=== PATIENT | male | born 1940 | race Caucasian/White ===

== ENCOUNTER 2018-10-06 11:45 | Outpatient (RCR) | payer MEDICARE, SELFPAY ==
--- NOTE | 2018-07-26 16:21 | PT.OPPOC ---
Current Diagnoses Pain in unspecified hip (07/26/18) Difficulty in walking, not elsewhere classified (07/26/18) Weakness (07/26/18) Provider Visit Care Team Role Provider Type Other Providers Specialty: Address: Phone: Fax: Email: Syeda Durand MD Attending Provider Non-Staff Specialty: Internal Medicine Address: [address] [place] [address], [phone] Fax: Email: Plan Of Care PT-OP-T Assessment and Plan Start: 07/26/18 08:08 Freq: Status: Active Protocol: Document 07/26/18 15:21 [facility] (Rec: 07/26/18 16:05 [facility] [id number]) Physical Therapy Assessment Rehab Potential Rehabilitation Potential Good Evaluation Complexity Number of Personal Factors/Comorbidities 3 or More Number of Body Systems Impaired 3 Clinical Presentation at Evaluation Evolving Impairments Impairments Activity Tolerance Functional Activities Pain Strength Goals Four Impairment strength Churn Driller Helper Goal (LTG) Increase strength bilateral LE 's to at least 4+/5 throughout Three Impairment Functional activities Short Term Goal (STG) Patient will improve his ROM and strength sufficient to allow him to don and doff his shoes and socks with ease STG Duration 6 wks Usp Goal (LTG) Patient will be able to tolerate resumption of gardening activities including getting down to the ground and back up without difficulty . LTG Duration 3 months Two Impairment Activity tolerance Churn Driller Helper Goal (LTG) Patient will be able to resume prior activities including gardening and walking 15-20 min at a time without difficulty LTG Duration 3 months One Impairment pain Short Term Goal (STG) Decrease pain to no greater than 4/10 STG Duration 6 wks Usp Goal (LTG) Decrease pain to no greater than 2/10 LTG Duration 3 months Physical Therapy Plan Frequency and Duration Frequency of Treatment 2x/Week Duration of Treatment 3 months Plan of Care Start Date 07/26/18 Plan of Care End Date 10/24/18 Therapeutic Interventions Therapeutic Interventions Aquatic Therapy Home Exercise Program Patient/Caregiver Education Self-Care/Home Management Next Visit Focus/Plan Next Note Type Treatment Note Next Visit Plan Initiate aquatic therapy Plan of Care Dates Plan of Care Start Date 07/26/18 Plan of Care End Date 10/24/18 Please Sign and Return: I have reviewed this Plan of Care and certify that the skilled therapy services above are required to meet the patient?s needs. Physician Signature Date Printed Name and Credentials Clinical Instructor Signature Printed Name and Credentials
--- NOTE | 2018-07-26 16:22 | PT.OIE ---
Current Diagnoses Pain in unspecified hip (07/26/18) Difficulty in walking, not elsewhere classified (07/26/18) Weakness (07/26/18) Provider Visit Care Team Role Provider Type Other Providers Specialty: Address: Phone: Fax: Email: Syeda Durand MD Attending Provider Non-Staff Specialty: Internal Medicine Address: [address] [place] [address], [phone] Fax: Email: Physical Therapy Initial Evaluation PT-OP-A Visit Information Start: 07/26/18 08:08 Freq: Status: Active Protocol: Document 07/26/18 15:21 [facility] (Rec: 07/26/18 16:05 [facility] [id number]) Out-Patient Physical Therapy Visit Information Visit Information Visit Type Initial Evaluation Visit Start Time 13:00 Visit Stop Time 13:45 Total Visit Minutes 45 Visit Number 1 Number of SECOND FACING BASTER Visits 0 Evaluation Information Evaluation Date 07/26/18 Precautions Precautions cardiac HTN PT-OP-B Current Condition Start: 07/26/18 08:08 Freq: Status: Active Protocol: Document 07/26/18 15:21 [facility] (Rec: 07/26/18 16:05 [facility] [id number]) Current Condition History of Current Condition Onset Date 1 year Current Complaints pain bilateral hips, LBP, left buttock and thigh History of Current Condition Patient reports gradual increase in pain, gaining weight, decrease in activity tolerance. States it has been a difficult year with multiple deaths of friends and family members and he has found it hard to be motivated to put his health as a priority. Has history of bipolar disorder, states medications were not helpful. History of quadrupal bypass surgery. Treatment Goals Patient/Caregiver Goals Decrease his pain, improve his activity tolerance, return to more active lifestyle. Prior Functional Status Baseline Function- ADL's Independent Baseline Function- Mobility Independent Baseline Function- Gait Independent, no pain Baseline Function- Recreation/Hobbies gardening, walking without difficulty Current Functional Impairments (Reported) Functional Limitations- ADL's painful, difficulty donning/ doffing shoes and socks Functional Limitations- Mobility/Gait painful and limited to household and short community distance Functional Limitations- Recreation/ painful, difficult to get up Hobbies off ground for gardening Personal Factors Other Personal Factors That May Effect depression, hx bipolar Therapy/Recovery disortder PT-OP-C Subjective Start: 07/26/18 08:08 Freq: Status: Active Protocol: Document 07/26/18 15:21 [facility] (Rec: 07/26/18 16:05 [facility] [id number]) Patient Questionnaires Lower Extremity Functional Scale LEFS Score 50 LEFS Impairment 40 to 59% Impaired (Score 32- 47) OP-PT Pain Assessment Pain Assessment Grid Paper Pain Assessment Grid Completed Yes Location fiorella hips, LB, left buttock and posterior thigh Intensity 6 Scale Used Numeric (1 - 10) Description Aching Pressure Tightness Frequency Frequent Pain Aggravating Factors Activity Exercise Walking Pain Alleviating Factors None Pain Behaviors Pain Behaviors Facial Grimacing Wincing PT-OP-G Mobility & Gait Start: 07/26/18 08:08 Freq: Status: Active Protocol: Document 07/26/18 15:21 [facility] (Rec: 07/26/18 16:05 [facility] [id number]) OP Mobility Evaluation Bed Mobility Rolling indep Supine to and from Sit indep Transfers Sit to Stand indep Floor Transfers labored, requires use of UE's on chair or table OP Gait Assessment Gait Gait Assistance Required: Independent Assistive Devices Assistive Device None Gait Deviations General Gait Pattern Decreased Stride Length Decreased Feet Clearance Factors Limiting Gait Function Factors Limiting Gait Function Decreased Strength Limited Range of Motion Pain Stair Climbing Evaluation Evaluation Level of Assist On Stairs Independent Devices Stair Climbing Assistive Devices Left Railing Right Railing Technique/Endurance Stair Climbing Direction Ascend and Descend Stair Climbing Technique Step Over Step PT-OP-K Range of Motion Start: 07/26/18 08:08 Freq: Status: Active Protocol: Document 07/26/18 15:21 [facility] (Rec: 07/26/18 16:05 [facility] [id number]) Lumbar Spine Range of Motion Lumbar Spine Active ROM Limitations Soft Tissue Tightness Muscle Weakness Pain Comments moderately decreased all motions Shoulder Goniometric Range of Motion Shoulder Measured in Degrees fiorella Shoulder ROM WFL Yes Hip Goniometric Range of Motion Hip Measured in Degrees Right Testing Position Supine Flexion w/Knee Flexed 120 Straight Leg Raise 55 Extension 5 Internal Rotation 20 External Rotation 40 left Testing Position Supine Flexion w/Knee Flexed 115 Straight Leg Raise 45 Extension 5 Internal Rotation 10 External Rotation 35 Hip ROM Limitations Hip ROM Limitations Soft Tissue Tightness Muscle Weakness Pain Knee Goniometric Range of Motion Knee Measured in Degrees fiorella Knee ROM WFL Yes Patient Position Supine Ankle and Foot Goniometric Range of Motion Ankle and Foot Measured in Degrees fiorella Ankle/Foot ROM WFL No Dorsiflexion with Knee Flexed 5 Dorsiflexion with Knee Extended 0 Plantarflexion 50 Ankle and Foot ROM Limitations ROM Limitations Soft Tissue Tightness Muscle Weakness PT-OP-M Strength Start: 07/26/18 08:08 Freq: Status: Active Protocol: Document 07/26/18 15:21 [facility] (Rec: 07/26/18 16:05 [facility] [id number]) Trunk Strength Trunk Manual Muscle Testing Testing Position Supine Flexion 3- Fair- Extension 3- Fair- Core Stabilization poor ability to activate TrA and multifidi Hip Strength Hip Manual Muscle Testing fiorella Flexion (L2) 3+ Fair+ Extension (S1) 3+ Fair+ Abduction 4- Good- External Rotation 3+ Fair+ Internal Rotation 4- Good- Knee Strength Knee Manual Muscle Testing fiorella Flexion (S2) 4+ Good+ Extension (L3) 4+ Good+ Ankle/Foot Strength Ankle and Foot Manual Muscle Testing fiorella Dorsiflexion (L4) 4+ Good+ Plantarflexion (S1) 4+ Good+ PT-OP-Q Treatments Start: 07/26/18 08:08 Freq: Status: Active Protocol: Document 07/26/18 15:21 [facility] (Rec: 07/26/18 16:05 [facility] [id number]) Self-Care/Home Management Treatment Education Patient Education Pain Management Other Education Resume HEP as previously instructed by [facility] . Issued aquatic information sheet and discussed benefits. PT-OP-T Assessment and Plan Start: 07/26/18 08:08 Freq: Status: Active Protocol: Document 07/26/18 15:21 [facility] (Rec: 07/26/18 16:05 [facility] [id number]) Physical Therapy Assessment Rehab Potential Rehabilitation Potential Good Evaluation Complexity Number of Personal Factors/Comorbidities 3 or More Number of Body Systems Impaired 3 Clinical Presentation at Evaluation Evolving Impairments Impairments Activity Tolerance Functional Activities Pain Strength Goals Four Impairment strength Assisted Goal (LTG) Increase strength bilateral LE 's to at least 4+/5 throughout Three Impairment Functional activities Short Term Goal (STG) Patient will improve his ROM and strength sufficient to allow him to don and doff his shoes and socks with ease STG Duration 6 wks Security Incident Response Engineer Goal (LTG) Patient will be able to tolerate resumption of gardening activities including getting down to the ground and back up without difficulty . LTG Duration 3 months Two Impairment Activity tolerance Security Incident Response Engineer Goal (LTG) Patient will be able to resume prior activities including gardening and walking 15-20 min at a time without difficulty LTG Duration 3 months One Impairment pain Short Term Goal (STG) Decrease pain to no greater than 4/10 STG Duration 6 wks Assisted Goal (LTG) Decrease pain to no greater than 2/10 LTG Duration 3 months Physical Therapy Plan Frequency and Duration Frequency of Treatment 2x/Week Duration of Treatment 3 months Plan of Care Start Date 07/26/18 Plan of Care End Date 10/24/18 Therapeutic Interventions Therapeutic Interventions Aquatic Therapy Home Exercise Program Patient/Caregiver Education Self-Care/Home Management Next Visit Focus/Plan Next Note Type Treatment Note Next Visit Plan Initiate aquatic therapy
--- NOTE | 2018-08-05 09:56 | PT.OTN ---
Current Diagnoses Pain in unspecified hip (08/04/18) Physical Therapy Treatment Note PT-OP-A Visit Information Start: 07/26/18 08:08 Freq: Status: Active Protocol: Document 08/04/18 11:00 [facility] (Rec: 08/05/18 09:55 [facility] [id number]) Out-Patient Physical Therapy Visit Information Visit Information Visit Type Aquatic Treatment Note Visit Start Time 11:00 Visit Stop Time 11:45 Total Visit Minutes 45 Visit Number 2 Number of SPEAR FISHER Visits 0 Evaluation Information Evaluation Date 07/26/18 Precautions Precautions cardiac HTN PT-OP-B Current Condition Start: 07/26/18 08:08 Freq: Status: Active Protocol: Document 07/26/18 15:21 [facility] (Rec: 07/26/18 16:05 [facility] [id number]) Current Condition History of Current Condition Onset Date 1 year Current Complaints pain bilateral hips, LBP, left buttock and thigh History of Current Condition Patient reports gradual increase in pain, gaining weight, decrease in activity tolerance. States it has been a difficult year with multiple deaths of friends and family members and he has found it hard to be motivated to put his health as a priority. Has history of bipolar disorder, states medications were not helpful. History of quadrupal bypass surgery. Treatment Goals Patient/Caregiver Goals Decrease his pain, improve his activity tolerance, return to more active lifestyle. Prior Functional Status Baseline Function- ADL's Independent Baseline Function- Mobility Independent Baseline Function- Gait Independent, no pain Baseline Function- Recreation/Hobbies gardening, walking without difficulty Current Functional Impairments (Reported) Functional Limitations- ADL's painful, difficulty donning/ doffing shoes and socks Functional Limitations- Mobility/Gait painful and limited to household and short community distance Functional Limitations- Recreation/ painful, difficult to get up Hobbies off ground for gardening Personal Factors Other Personal Factors That May Effect depression, hx bipolar Therapy/Recovery disortder PT-OP-C Subjective Start: 07/26/18 08:08 Freq: Status: Active Protocol: Document 07/26/18 15:21 [facility] (Rec: 07/26/18 16:05 [facility] [id number]) Patient Questionnaires Lower Extremity Functional Scale LEFS Score 50 LEFS Impairment 40 to 59% Impaired (Score 32- 47) OP-PT Pain Assessment Pain Assessment Grid Paper Pain Assessment Grid Completed Yes Location fiorella hips, LB, left buttock and posterior thigh Intensity 6 Scale Used Numeric (1 - 10) Description Aching Pressure Tightness Frequency Frequent Pain Aggravating Factors Activity Exercise Walking Pain Alleviating Factors None Pain Behaviors Pain Behaviors Facial Grimacing Wincing PT-OP-G Mobility & Gait Start: 07/26/18 08:08 Freq: Status: Active Protocol: Document 07/26/18 15:21 [facility] (Rec: 07/26/18 16:05 [facility] [id number]) OP Mobility Evaluation Bed Mobility Rolling indep Supine to and from Sit indep Transfers Sit to Stand indep Floor Transfers labored, requires use of UE's on chair or table OP Gait Assessment Gait Gait Assistance Required: Independent Assistive Devices Assistive Device None Gait Deviations General Gait Pattern Decreased Stride Length Decreased Feet Clearance Factors Limiting Gait Function Factors Limiting Gait Function Decreased Strength Limited Range of Motion Pain Stair Climbing Evaluation Evaluation Level of Assist On Stairs Independent Devices Stair Climbing Assistive Devices Left Railing Right Railing Technique/Endurance Stair Climbing Direction Ascend and Descend Stair Climbing Technique Step Over Step PT-OP-K Range of Motion Start: 07/26/18 08:08 Freq: Status: Active Protocol: Document 07/26/18 15:21 [facility] (Rec: 07/26/18 16:05 [facility] [id number]) Lumbar Spine Range of Motion Lumbar Spine Active ROM Limitations Soft Tissue Tightness Muscle Weakness Pain Comments moderately decreased all motions Shoulder Goniometric Range of Motion Shoulder Measured in Degrees fiorella Shoulder ROM WFL Yes Hip Goniometric Range of Motion Hip Measured in Degrees Right Testing Position Supine Flexion w/Knee Flexed 120 Straight Leg Raise 55 Extension 5 Internal Rotation 20 External Rotation 40 left Testing Position Supine Flexion w/Knee Flexed 115 Straight Leg Raise 45 Extension 5 Internal Rotation 10 External Rotation 35 Hip ROM Limitations Hip ROM Limitations Soft Tissue Tightness Muscle Weakness Pain Knee Goniometric Range of Motion Knee Measured in Degrees fiorella Knee ROM WFL Yes Patient Position Supine Ankle and Foot Goniometric Range of Motion Ankle and Foot Measured in Degrees fiorella Ankle/Foot ROM WFL No Dorsiflexion with Knee Flexed 5 Dorsiflexion with Knee Extended 0 Plantarflexion 50 Ankle and Foot ROM Limitations ROM Limitations Soft Tissue Tightness Muscle Weakness PT-OP-M Strength Start: 07/26/18 08:08 Freq: Status: Active Protocol: Document 07/26/18 15:21 [facility] (Rec: 07/26/18 16:05 [facility] [id number]) Trunk Strength Trunk Manual Muscle Testing Testing Position Supine Flexion 3- Fair- Extension 3- Fair- Core Stabilization poor ability to activate TrA and multifidi Hip Strength Hip Manual Muscle Testing fiorella Flexion (L2) 3+ Fair+ Extension (S1) 3+ Fair+ Abduction 4- Good- External Rotation 3+ Fair+ Internal Rotation 4- Good- Knee Strength Knee Manual Muscle Testing fiorella Flexion (S2) 4+ Good+ Extension (L3) 4+ Good+ Ankle/Foot Strength Ankle and Foot Manual Muscle Testing fiorella Dorsiflexion (L4) 4+ Good+ Plantarflexion (S1) 4+ Good+ PT-OP-Q Treatments Start: 07/26/18 08:08 Freq: Status: Active Protocol: Document 07/26/18 15:21 [facility] (Rec: 07/26/18 16:05 [facility] [id number]) Self-Care/Home Management Treatment Education Patient Education Pain Management Other Education Resume HEP as previously instructed by [facility] . Issued aquatic information sheet and discussed benefits. PT-OP-S Aquatic Treatment Start: 07/26/18 08:08 Freq: Status: Active Protocol: Document 08/04/18 11:00 [facility] (Rec: 08/05/18 09:55 [facility] [id number]) Aquatics Treatment Pool Entry/Exit Pool Entry/Exit Method Stairs Assistance Standby Assistance Verbal Cues Water Walking fwd,bck, Water Level Chest Level Level of Assistance Standby Assistance Verbal Cues Comments emphasis on postural alignment and core stab Lower Extremity Exercises squats Body Position Standing Water Level Chest Level Reps/Duration 10x hip flex/ext, ab/ad, circles Body Position Standing Water Level Chest Level Reps/Duration 10x Lower Extremity Stretches HS, ITB Body Position Standing Water Level Chest Level Equipment Small Noodle Reps/Duration 2x ea Upper Extremity Exercises shoulder flex/ext Reps/Duration 10x Comments DLS emphasis hor ab/ad Reps/Duration 10x Comments DLS emphasis Spinal Exercises SKTC, DKTC Water Level [place] Reps/Duration 2x 30 Comments at wall deep water hang Reps/Duration 1 min x 2 Comments at wall [place] Activities [place] Activities Bicycle Cross Country Running Equipment XL belt Duration 15' Comments slow speed, emphasis on postural alignment and core stab PT-OP-T Assessment and Plan Start: 07/26/18 08:08 Freq: Status: Active Protocol: Document 08/04/18 11:00 [facility] (Rec: 08/05/18 09:55 [facility] [id number]) Physical Therapy Assessment Goals Four Impairment strength Fci Goal (LTG) Increase strength bilateral LE 's to at least 4+/5 throughout Three Impairment Functional activities Short Term Goal (STG) Patient will improve his ROM and strength sufficient to allow him to don and doff his shoes and socks with ease STG Duration 6 wks Fci Goal (LTG) Patient will be able to tolerate resumption of gardening activities including getting down to the ground and back up without difficulty . LTG Duration 3 months Two Impairment Activity tolerance Fci Goal (LTG) Patient will be able to resume prior activities including gardening and walking 15-20 min at a time without difficulty LTG Duration 3 months One Impairment pain Short Term Goal (STG) Decrease pain to no greater than 4/10 STG Duration 6 wks Special Deputy Sheriff Goal (LTG) Decrease pain to no greater than 2/10 LTG Duration 3 months Assessment Summary Assessment good tolerance for first aquatic therapy session, without c/o pain Physical Therapy Plan Therapeutic Interventions Therapeutic Interventions Aquatic Therapy Home Exercise Program Patient/Caregiver Education Self-Care/Home Management Next Visit Focus/Plan Next Note Type Treatment Note Next Visit Plan Progress aquatic therapy as tolerated. Add deep water DLS ex.
--- NOTE | 2018-08-06 14:47 | PT.OTN ---
Current Diagnoses Pain in unspecified hip (08/04/18) Physical Therapy Treatment Note PT-OP-A Visit Information Start: 07/26/18 08:08 Freq: Status: Active Protocol: Document 08/06/18 11:45 MEGHNA (Rec: 08/06/18 14:47 LJ [id number]) Out-Patient Physical Therapy Visit Information Visit Information Visit Type Aquatic Treatment Note Visit Start Time 11:45 Visit Stop Time 12:30 Total Visit Minutes 45 Visit Number 3 Number of WATER PUMP ASSEMBLER Visits 1 PT-OP-B Current Condition Start: 07/26/18 08:08 Freq: Status: Active Protocol: Document 07/26/18 15:21 SAK (Rec: 07/26/18 16:05 SAK [id number]) Current Condition History of Current Condition Onset Date 1 year Current Complaints pain bilateral hips, LBP, left buttock and thigh History of Current Condition Patient reports gradual increase in pain, gaining weight, decrease in activity tolerance. States it has been a difficult year with multiple deaths of friends and family members and he has found it hard to be motivated to put his health as a priority. Has history of bipolar disorder, states medications were not helpful. History of quadrupal bypass surgery. Treatment Goals Patient/Caregiver Goals Decrease his pain, improve his activity tolerance, return to more active lifestyle. Prior Functional Status Baseline Function- ADL's Independent Baseline Function- Mobility Independent Baseline Function- Gait Independent, no pain Baseline Function- Recreation/Hobbies gardening, walking without difficulty Current Functional Impairments (Reported) Functional Limitations- ADL's painful, difficulty donning/ doffing shoes and socks Functional Limitations- Mobility/Gait painful and limited to household and short community distance Functional Limitations- Recreation/ painful, difficult to get up Hobbies off ground for gardening Personal Factors Other Personal Factors That May Effect depression, hx bipolar Therapy/Recovery disortder PT-OP-C Subjective Start: 07/26/18 08:08 Freq: Status: Active Protocol: Document 08/06/18 11:45 MEGHNA (Rec: 08/06/18 14:47 LJ [id number]) OP-PT Subjective Patient Comments Patient Comments No c/o pain. Wanting to geta good workout in the water PT-OP-G Mobility & Gait Start: 07/26/18 08:08 Freq: Status: Active Protocol: Document 07/26/18 15:21 SAK (Rec: 07/26/18 16:05 [facility] [id number]) OP Mobility Evaluation Bed Mobility Rolling indep Supine to and from Sit indep Transfers Sit to Stand indep Floor Transfers labored, requires use of UE's on chair or table OP Gait Assessment Gait Gait Assistance Required: Independent Assistive Devices Assistive Device None Gait Deviations General Gait Pattern Decreased Stride Length Decreased Feet Clearance Factors Limiting Gait Function Factors Limiting Gait Function Decreased Strength Limited Range of Motion Pain Stair Climbing Evaluation Evaluation Level of Assist On Stairs Independent Devices Stair Climbing Assistive Devices Left Railing Right Railing Technique/Endurance Stair Climbing Direction Ascend and Descend Stair Climbing Technique Step Over Step PT-OP-K Range of Motion Start: 07/26/18 08:08 Freq: Status: Active Protocol: Document 07/26/18 15:21 [facility] (Rec: 07/26/18 16:05 [facility] [id number]) Lumbar Spine Range of Motion Lumbar Spine Active ROM Limitations Soft Tissue Tightness Muscle Weakness Pain Comments moderately decreased all motions Shoulder Goniometric Range of Motion Shoulder Measured in Degrees fiorella Shoulder ROM WFL Yes Hip Goniometric Range of Motion Hip Measured in Degrees Right Testing Position Supine Flexion w/Knee Flexed 120 Straight Leg Raise 55 Extension 5 Internal Rotation 20 External Rotation 40 left Testing Position Supine Flexion w/Knee Flexed 115 Straight Leg Raise 45 Extension 5 Internal Rotation 10 External Rotation 35 Hip ROM Limitations Hip ROM Limitations Soft Tissue Tightness Muscle Weakness Pain Knee Goniometric Range of Motion Knee Measured in Degrees fiorella Knee ROM WFL Yes Patient Position Supine Ankle and Foot Goniometric Range of Motion Ankle and Foot Measured in Degrees fiorella Ankle/Foot ROM WFL No Dorsiflexion with Knee Flexed 5 Dorsiflexion with Knee Extended 0 Plantarflexion 50 Ankle and Foot ROM Limitations ROM Limitations Soft Tissue Tightness Muscle Weakness PT-OP-M Strength Start: 07/26/18 08:08 Freq: Status: Active Protocol: Document 07/26/18 15:21 [facility] (Rec: 07/26/18 16:05 [facility] [id number]) Trunk Strength Trunk Manual Muscle Testing Testing Position Supine Flexion 3- Fair- Extension 3- Fair- Core Stabilization poor ability to activate TrA and multifidi Hip Strength Hip Manual Muscle Testing fiorella Flexion (L2) 3+ Fair+ Extension (S1) 3+ Fair+ Abduction 4- Good- External Rotation 3+ Fair+ Internal Rotation 4- Good- Knee Strength Knee Manual Muscle Testing fiorella Flexion (S2) 4+ Good+ Extension (L3) 4+ Good+ Ankle/Foot Strength Ankle and Foot Manual Muscle Testing fiorella Dorsiflexion (L4) 4+ Good+ Plantarflexion (S1) 4+ Good+ PT-OP-Q Treatments Start: 07/26/18 08:08 Freq: Status: Active Protocol: Document 07/26/18 15:21 SAK (Rec: 07/26/18 16:05 SAK [id number]) Self-Care/Home Management Treatment Education Patient Education Pain Management Other Education Resume HEP as previously instructed by [facility] . Issued aquatic information sheet and discussed benefits. PT-OP-S Aquatic Treatment Start: 07/26/18 08:08 Freq: Status: Active Protocol: Document 08/06/18 11:45 MEGHNA (Rec: 08/06/18 14:47 LJ [id number]) Aquatics Treatment Pool Entry/Exit Pool Entry/Exit Method Stairs Assistance Standby Assistance Water Walking [place] September Water Level Chest Level Level of Assistance Verbal Cues Comments VCs for strong LE extension and glute activation fwd,bck,side,march Water Level Chest Level Level of Assistance Standby Assistance Verbal Cues Comments emphasis on postural alignment and core stab Lower Extremity Exercises HS curls and kick backs Body Position Standing Water Level Chest Level Reps/Duration 10 bilat Comments manual cues for activating gluteal muscles squats Body Position Standing Water Level Chest Level Reps/Duration 15x Comments arm movement to challenge core control hip flex/ext, ab/ad, circles Body Position Standing Water Level Chest Level Reps/Duration 10x Comments cues for increased power and core control Lower Extremity Stretches HS, ITB Body Position Standing Water Level Chest Level Equipment Small Noodle Reps/Duration 2x ea Upper Extremity Exercises shoulder flex/ext Reps/Duration 10x Comments DLS emphasis hor ab/ad Reps/Duration 10x Comments DLS emphasis Spinal Exercises SKTC, DKTC Water Level [place] Reps/Duration 2x 30 Comments at wall Balance tandem walking Body Position Standing Water Level Chest Level Reps/Duration 3 min Comments vc for positioning [place] Activities [place] Activities Bicycle Cross Country Running Equipment XL belt Duration 10' Comments emphasis on postural alignment and core stab PT-OP-T Assessment and Plan Start: 07/26/18 08:08 Freq: Status: Active Protocol: Document 08/06/18 11:45 MEGHNA (Rec: 08/06/18 14:47 MEGHNA [id number]) Physical Therapy Assessment Goals Four Impairment strength Correction Goal (LTG) Increase strength bilateral LE 's to at least 4+/5 throughout Three Impairment Functional activities Short Term Goal (STG) Patient will improve his ROM and strength sufficient to allow him to don and doff his shoes and socks with ease STG Duration 6 wks Coating Line Worker Goal (LTG) Patient will be able to tolerate resumption of gardening activities including getting down to the ground and back up without difficulty . LTG Duration 3 months Two Impairment Activity tolerance Correction Goal (LTG) Patient will be able to resume prior activities including gardening and walking 15-20 min at a time without difficulty LTG Duration 3 months One Impairment pain Short Term Goal (STG) Decrease pain to no greater than 4/10 STG Duration 6 wks Coating Line Worker Goal (LTG) Decrease pain to no greater than 2/10 LTG Duration 3 months Assessment Summary Assessment Pt tolerated session well. Physical Therapy Plan Frequency and Duration Frequency of Treatment 2x/Week Duration of Treatment 3 months Plan of Care Start Date 07/26/18 Plan of Care End Date 10/24/18 Therapeutic Interventions Therapeutic Interventions Aquatic Therapy Home Exercise Program Patient/Caregiver Education Self-Care/Home Management Next Visit Focus/Plan Next Note Type Treatment Note Next Visit Plan Progress aquatic therapy as tolerated. Add deep water DLS ex.
--- NOTE | 2018-08-11 16:38 | PT.OTN ---
Current Diagnoses Pain in unspecified hip (08/11/18) Physical Therapy Treatment Note PT-OP-A Visit Information Start: 07/26/18 08:08 Freq: Status: Active Protocol: Document 08/11/18 14:30 [facility] (Rec: 08/11/18 14:40 [facility] [id number]) Out-Patient Physical Therapy Visit Information Visit Information Visit Type Treatment Note Visit Start Time 14:30 Visit Stop Time 15:15 Total Visit Minutes 45 Visit Number 4 Number of LINER ROLL CHANGER Visits 0 Evaluation Information Evaluation Date 07/26/18 Precautions Precautions cardiac HTN PT-OP-B Current Condition Start: 07/26/18 08:08 Freq: Status: Active Protocol: Document 07/26/18 15:21 SAK (Rec: 07/26/18 16:05 [facility] [id number]) Current Condition History of Current Condition Onset Date 1 year Current Complaints pain bilateral hips, LBP, left buttock and thigh History of Current Condition Patient reports gradual increase in pain, gaining weight, decrease in activity tolerance. States it has been a difficult year with multiple deaths of friends and family members and he has found it hard to be motivated to put his health as a priority. Has history of bipolar disorder, states medications were not helpful. History of quadrupal bypass surgery. Treatment Goals Patient/Caregiver Goals Decrease his pain, improve his activity tolerance, return to more active lifestyle. Prior Functional Status Baseline Function- ADL's Independent Baseline Function- Mobility Independent Baseline Function- Gait Independent, no pain Baseline Function- Recreation/Hobbies gardening, walking without difficulty Current Functional Impairments (Reported) Functional Limitations- ADL's painful, difficulty donning/ doffing shoes and socks Functional Limitations- Mobility/Gait painful and limited to household and short community distance Functional Limitations- Recreation/ painful, difficult to get up Hobbies off ground for gardening Personal Factors Other Personal Factors That May Effect depression, hx bipolar Therapy/Recovery disortder PT-OP-C Subjective Start: 07/26/18 08:08 Freq: Status: Active Protocol: Document 08/11/18 14:30 [facility] (Rec: 08/11/18 14:40 [facility] [id number]) OP-PT Subjective Patient Comments Patient Comments No new c/o PT-OP-G Mobility & Gait Start: 07/26/18 08:08 Freq: Status: Active Protocol: Document 07/26/18 15:21 [facility] (Rec: 07/26/18 16:05 [facility] [id number]) OP Mobility Evaluation Bed Mobility Rolling indep Supine to and from Sit indep Transfers Sit to Stand indep Floor Transfers labored, requires use of UE's on chair or table OP Gait Assessment Gait Gait Assistance Required: Independent Assistive Devices Assistive Device None Gait Deviations General Gait Pattern Decreased Stride Length Decreased Feet Clearance Factors Limiting Gait Function Factors Limiting Gait Function Decreased Strength Limited Range of Motion Pain Stair Climbing Evaluation Evaluation Level of Assist On Stairs Independent Devices Stair Climbing Assistive Devices Left Railing Right Railing Technique/Endurance Stair Climbing Direction Ascend and Descend Stair Climbing Technique Step Over Step PT-OP-K Range of Motion Start: 07/26/18 08:08 Freq: Status: Active Protocol: Document 07/26/18 15:21 [facility] (Rec: 07/26/18 16:05 [facility] [id number]) Lumbar Spine Range of Motion Lumbar Spine Active ROM Limitations Soft Tissue Tightness Muscle Weakness Pain Comments moderately decreased all motions Shoulder Goniometric Range of Motion Shoulder Measured in Degrees fiorella Shoulder ROM WFL Yes Hip Goniometric Range of Motion Hip Measured in Degrees Right Testing Position Supine Flexion w/Knee Flexed 120 Straight Leg Raise 55 Extension 5 Internal Rotation 20 External Rotation 40 left Testing Position Supine Flexion w/Knee Flexed 115 Straight Leg Raise 45 Extension 5 Internal Rotation 10 External Rotation 35 Hip ROM Limitations Hip ROM Limitations Soft Tissue Tightness Muscle Weakness Pain Knee Goniometric Range of Motion Knee Measured in Degrees fiorella Knee ROM WFL Yes Patient Position Supine Ankle and Foot Goniometric Range of Motion Ankle and Foot Measured in Degrees fiorella Ankle/Foot ROM WFL No Dorsiflexion with Knee Flexed 5 Dorsiflexion with Knee Extended 0 Plantarflexion 50 Ankle and Foot ROM Limitations ROM Limitations Soft Tissue Tightness Muscle Weakness PT-OP-M Strength Start: 07/26/18 08:08 Freq: Status: Active Protocol: Document 07/26/18 15:21 [facility] (Rec: 07/26/18 16:05 [facility] [id number]) Trunk Strength Trunk Manual Muscle Testing Testing Position Supine Flexion 3- Fair- Extension 3- Fair- Core Stabilization poor ability to activate TrA and multifidi Hip Strength Hip Manual Muscle Testing fiorella Flexion (L2) 3+ Fair+ Extension (S1) 3+ Fair+ Abduction 4- Good- External Rotation 3+ Fair+ Internal Rotation 4- Good- Knee Strength Knee Manual Muscle Testing fiorella Flexion (S2) 4+ Good+ Extension (L3) 4+ Good+ Ankle/Foot Strength Ankle and Foot Manual Muscle Testing fiorella Dorsiflexion (L4) 4+ Good+ Plantarflexion (S1) 4+ Good+ PT-OP-Q Treatments Start: 07/26/18 08:08 Freq: Status: Active Protocol: Document 08/11/18 14:30 SAK (Rec: 08/11/18 15:16 SAK [id number]) Cardio Equipment Recumbent Stepper (Sci-Fit) Duration (Minutes) 10 Resistance 1 Seat Position 12 Gym Equipment Shuttle Recovery Bilateral Squats Resistance 87, 100 Shuttle Recovery Platform Stable Therapeutic Exercises Sitting Exercises hip ab, ad Resistance 60 Reps/Minutes 10x2 hamstring curl Resistance 80, 70 Reps/Minutes 10x2 Standing Exercises tricep press Resistance 30 Reps/Minutes 10x2 row, shld ext Resistance L2 TB Reps/Minutes 10x ea resisted walk Standing Exercise Name side, fwd/bck Equipment Used yellow band PT-OP-S Aquatic Treatment Start: 07/26/18 08:08 Freq: Status: Active Protocol: Document 08/06/18 11:45 LJ (Rec: 08/06/18 14:47 LJ [email or web address]) Aquatics Treatment Pool Entry/Exit Pool Entry/Exit Method Stairs Assistance Standby Assistance Water Walking [place] September Water Level Chest Level Level of Assistance Verbal Cues Comments VCs for strong LE extension and glute activation fwd,bck,side,march Water Level Chest Level Level of Assistance Standby Assistance Verbal Cues Comments emphasis on postural alignment and core stab Lower Extremity Exercises HS curls and kick backs Body Position Standing Water Level Chest Level Reps/Duration 10 bilat Comments manual cues for activating gluteal muscles squats Body Position Standing Water Level Chest Level Reps/Duration 15x Comments arm movement to challenge core control hip flex/ext, ab/ad, circles Body Position Standing Water Level Chest Level Reps/Duration 10x Comments cues for increased power and core control Lower Extremity Stretches HS, ITB Body Position Standing Water Level Chest Level Equipment Small Noodle Reps/Duration 2x ea Upper Extremity Exercises shoulder flex/ext Reps/Duration 10x Comments DLS emphasis hor ab/ad Reps/Duration 10x Comments DLS emphasis Spinal Exercises SKTC, DKTC Water Level [place] Reps/Duration 2x 30 Comments at wall Balance tandem walking Body Position Standing Water Level Chest Level Reps/Duration 3 min Comments vc for positioning [place] Activities [place] Activities Bicycle Cross [place] Running Equipment XL belt Duration 10' Comments emphasis on postural alignment and core stab PT-OP-T Assessment and Plan Start: 07/26/18 08:08 Freq: Status: Active Protocol: Document 08/11/18 14:30 [facility] (Rec: 08/11/18 14:40 SAK [id number]) Physical Therapy Assessment Goals Four Impairment strength Fdc Goal (LTG) Increase strength bilateral LE 's to at least 4+/5 throughout Three Impairment Functional activities Short Term Goal (STG) Patient will improve his ROM and strength sufficient to allow him to don and doff his shoes and socks with ease STG Duration 6 wks Fdc Goal (LTG) Patient will be able to tolerate resumption of gardening activities including getting down to the ground and back up without difficulty . LTG Duration 3 months Two Impairment Activity tolerance Printed Circuit Designer Goal (LTG) Patient will be able to resume prior activities including gardening and walking 15-20 min at a time without difficulty LTG Duration 3 months One Impairment pain Short Term Goal (STG) Decrease pain to no greater than 4/10 STG Duration 6 wks Printed Circuit Designer Goal (LTG) Decrease pain to no greater than 2/10 LTG Duration 3 months Assessment Summary Assessment Good tolerance for today's session, patient exhibits good motivation. Physical Therapy Plan Frequency and Duration Frequency of Treatment 2x/Week Duration of Treatment 3 months Plan of Care Start Date 07/26/18 Plan of Care End Date 10/24/18 Therapeutic Interventions Therapeutic Interventions Aquatic Therapy Home Exercise Program Patient/Caregiver Education Self-Care/Home Management Next Visit Focus/Plan Next Note Type Treatment Note Next Visit Plan Continue progression of aquatic and land-based PT
--- NOTE | 2018-08-18 16:12 | PT.OTN ---
Current Diagnoses Pain in unspecified hip (08/18/18) Physical Therapy Treatment Note PT-OP-A Visit Information Start: 07/26/18 08:08 Freq: Status: Active Protocol: Document 08/18/18 15:23 [facility] (Rec: 08/18/18 16:04 [facility] [id number]) Out-Patient Physical Therapy Visit Information Visit Information Visit Type Treatment Note Visit Start Time 15:20 Visit Stop Time 16:05 Total Visit Minutes 45 Visit Number 5 Number of FILLER SHREDDER MACHINE Visits 0 Evaluation Information Evaluation Date 07/26/18 Precautions Precautions cardiac HTN PT-OP-B Current Condition Start: 07/26/18 08:08 Freq: Status: Active Protocol: Document 07/26/18 15:21 [facility] (Rec: 07/26/18 16:05 [facility] [id number]) Current Condition History of Current Condition Onset Date 1 year Current Complaints pain bilateral hips, LBP, left buttock and thigh History of Current Condition Patient reports gradual increase in pain, gaining weight, decrease in activity tolerance. States it has been a difficult year with multiple deaths of friends and family members and he has found it hard to be motivated to put his health as a priority. Has history of bipolar disorder, states medications were not helpful. History of quadrupal bypass surgery. Treatment Goals Patient/Caregiver Goals Decrease his pain, improve his activity tolerance, return to more active lifestyle. Prior Functional Status Baseline Function- ADL's Independent Baseline Function- Mobility Independent Baseline Function- Gait Independent, no pain Baseline Function- Recreation/Hobbies gardening, walking without difficulty Current Functional Impairments (Reported) Functional Limitations- ADL's painful, difficulty donning/ doffing shoes and socks Functional Limitations- Mobility/Gait painful and limited to household and short community distance Functional Limitations- Recreation/ painful, difficult to get up Hobbies off ground for gardening Personal Factors Other Personal Factors That May Effect depression, hx bipolar Therapy/Recovery disortder PT-OP-C Subjective Start: 07/26/18 08:08 Freq: Status: Active Protocol: Document 08/18/18 15:23 [facility] (Rec: 08/18/18 16:04 [facility] [id number]) OP-PT Subjective Patient Comments Patient Comments prefers aquatic therapy. PT-OP-G Mobility & Gait Start: 07/26/18 08:08 Freq: Status: Active Protocol: Document 07/26/18 15:21 [facility] (Rec: 07/26/18 16:05 [facility] [id number]) OP Mobility Evaluation Bed Mobility Rolling indep Supine to and from Sit indep Transfers Sit to Stand indep Floor Transfers labored, requires use of UE's on chair or table OP Gait Assessment Gait Gait Assistance Required: Independent Assistive Devices Assistive Device None Gait Deviations General Gait Pattern Decreased Stride Length Decreased Feet Clearance Factors Limiting Gait Function Factors Limiting Gait Function Decreased Strength Limited Range of Motion Pain Stair Climbing Evaluation Evaluation Level of Assist On Stairs Independent Devices Stair Climbing Assistive Devices Left Railing Right Railing Technique/Endurance Stair Climbing Direction Ascend and Descend Stair Climbing Technique Step Over Step PT-OP-K Range of Motion Start: 07/26/18 08:08 Freq: Status: Active Protocol: Document 07/26/18 15:21 [facility] (Rec: 07/26/18 16:05 [facility] [id number]) Lumbar Spine Range of Motion Lumbar Spine Active ROM Limitations Soft Tissue Tightness Muscle Weakness Pain Comments moderately decreased all motions Shoulder Goniometric Range of Motion Shoulder Measured in Degrees fiorella Shoulder ROM WFL Yes Hip Goniometric Range of Motion Hip Measured in Degrees Right Testing Position Supine Flexion w/Knee Flexed 120 Straight Leg Raise 55 Extension 5 Internal Rotation 20 External Rotation 40 left Testing Position Supine Flexion w/Knee Flexed 115 Straight Leg Raise 45 Extension 5 Internal Rotation 10 External Rotation 35 Hip ROM Limitations Hip ROM Limitations Soft Tissue Tightness Muscle Weakness Pain Knee Goniometric Range of Motion Knee Measured in Degrees fiorella Knee ROM WFL Yes Patient Position Supine Ankle and Foot Goniometric Range of Motion Ankle and Foot Measured in Degrees fiorella Ankle/Foot ROM WFL No Dorsiflexion with Knee Flexed 5 Dorsiflexion with Knee Extended 0 Plantarflexion 50 Ankle and Foot ROM Limitations ROM Limitations Soft Tissue Tightness Muscle Weakness PT-OP-M Strength Start: 07/26/18 08:08 Freq: Status: Active Protocol: Document 07/26/18 15:21 [facility] (Rec: 07/26/18 16:05 [facility] [id number]) Trunk Strength Trunk Manual Muscle Testing Testing Position Supine Flexion 3- Fair- Extension 3- Fair- Core Stabilization poor ability to activate TrA and multifidi Hip Strength Hip Manual Muscle Testing fiorella Flexion (L2) 3+ Fair+ Extension (S1) 3+ Fair+ Abduction 4- Good- External Rotation 3+ Fair+ Internal Rotation 4- Good- Knee Strength Knee Manual Muscle Testing fiorella Flexion (S2) 4+ Good+ Extension (L3) 4+ Good+ Ankle/Foot Strength Ankle and Foot Manual Muscle Testing fiorella Dorsiflexion (L4) 4+ Good+ Plantarflexion (S1) 4+ Good+ PT-OP-Q Treatments Start: 07/26/18 08:08 Freq: Status: Active Protocol: Document 08/18/18 15:23 [facility] (Rec: 08/18/18 16:04 [facility] [id number]) Cardio Equipment Recumbent Stepper (Sci-Fit) Duration (Minutes) 10 Resistance 2 Seat Position 12 Gym Equipment Shuttle Recovery Bilateral Squats Resistance 125 Reps/Time 10x1, 20x1 Shuttle Balance chains red Details balance wide and narrow front/ back, side to side bal Reps/Duration 5 min chains yellow Details wide LUIS, narrow LUIS, EO, EC Reps/Duration 5 min Comments balance Therapeutic Exercises Supine Exercises HS stretch Reps/Minutes 2x Standing Exercises 4-way hip Equipment Used L1 TB Reps/Minutes 10x resisted walk Standing Exercise Name side, fwd/bck Equipment Used green band PT-OP-S Aquatic Treatment Start: 07/26/18 08:08 Freq: Status: Active Protocol: Document 08/06/18 11:45 LJ (Rec: 08/06/18 14:47 LJ [id number]) Aquatics Treatment Pool Entry/Exit Pool Entry/Exit Method Stairs Assistance Standby Assistance Water Walking [place] September Water Level Chest Level Level of Assistance Verbal Cues Comments VCs for strong LE extension and glute activation fwd,bck,side,september Water Level Chest Level Level of Assistance Standby Assistance Verbal Cues Comments emphasis on postural alignment and core stab Lower Extremity Exercises HS curls and kick backs Body Position Standing Water Level Chest Level Reps/Duration 10 bilat Comments manual cues for activating gluteal muscles squats Body Position Standing Water Level Chest Level Reps/Duration 15x Comments arm movement to challenge core control hip flex/ext, ab/ad, circles Body Position Standing Water Level Chest Level Reps/Duration 10x Comments cues for increased power and core control Lower Extremity Stretches HS, ITB Body Position Standing Water Level Chest Level Equipment Small Noodle Reps/Duration 2x ea Upper Extremity Exercises shoulder flex/ext Reps/Duration 10x Comments DLS emphasis hor ab/ad Reps/Duration 10x Comments DLS emphasis Spinal Exercises SKTC, DKTC Water Level [place] Reps/Duration 2x 30 Comments at wall Balance tandem walking Body Position Standing Water Level Chest Level Reps/Duration 3 min Comments vc for positioning [place] Activities [place] Activities Bicycle Cross Country Running Equipment XL belt Duration 10' Comments emphasis on postural alignment and core stab PT-OP-T Assessment and Plan Start: 07/26/18 08:08 Freq: Status: Active Protocol: Document 08/18/18 15:23 [facility] (Rec: 08/18/18 16:04 [facility] [id number]) Physical Therapy Assessment Goals Four Impairment strength Senior Living Goal (LTG) Increase strength bilateral LE 's to at least 4+/5 throughout Three Impairment Functional activities Short Term Goal (STG) Patient will improve his ROM and strength sufficient to allow him to don and doff his shoes and socks with ease STG Duration 6 wks Drilling Manager Goal (LTG) Patient will be able to tolerate resumption of gardening activities including getting down to the ground and back up without difficulty . LTG Duration 3 months Two Impairment Activity tolerance Drilling Manager Goal (LTG) Patient will be able to resume prior activities including gardening and walking 15-20 min at a time without difficulty LTG Duration 3 months One Impairment pain Short Term Goal (STG) Decrease pain to no greater than 4/10 STG Duration 6 wks Drilling Manager Goal (LTG) Decrease pain to no greater than 2/10 LTG Duration 3 months Assessment Summary Assessment Increased exercise tolerance, mod cues for postural alignment and core stab Physical Therapy Plan Frequency and Duration Frequency of Treatment 2x/Week Duration of Treatment 3 months Plan of Care Start Date 07/26/18 Plan of Care End Date 10/24/18 Therapeutic Interventions Therapeutic Interventions Aquatic Therapy Home Exercise Program Patient/Caregiver Education Self-Care/Home Management Next Visit Focus/Plan Next Note Type Treatment Note Next Visit Plan aquatic PT next session
--- NOTE | 2018-08-23 13:45 | PT.OTN ---
Current Diagnoses Pain in unspecified hip (08/20/18) Physical Therapy Treatment Note PT-OP-A Visit Information Start: 07/26/18 08:08 Freq: Status: Active Protocol: Document 08/20/18 12:30 [facility] (Rec: 08/23/18 13:31 [facility] [id number]) Out-Patient Physical Therapy Visit Information Visit Information Visit Type Treatment Note Visit Start Time 15:20 Visit Stop Time 16:05 Total Visit Minutes 45 Visit Number 5 Number of OUTBOARD MOTORBOAT OPERATOR Visits 0 Evaluation Information Evaluation Date 07/26/18 Precautions Precautions cardiac HTN PT-OP-B Current Condition Start: 07/26/18 08:08 Freq: Status: Active Protocol: Document 07/26/18 15:21 [facility] (Rec: 07/26/18 16:05 [facility] [id number]) Current Condition History of Current Condition Onset Date 1 year Current Complaints pain bilateral hips, LBP, left buttock and thigh History of Current Condition Patient reports gradual increase in pain, gaining weight, decrease in activity tolerance. States it has been a difficult year with multiple deaths of friends and family members and he has found it hard to be motivated to put his health as a priority. Has history of bipolar disorder, states medications were not helpful. History of quadrupal bypass surgery. Treatment Goals Patient/Caregiver Goals Decrease his pain, improve his activity tolerance, return to more active lifestyle. Prior Functional Status Baseline Function- ADL's Independent Baseline Function- Mobility Independent Baseline Function- Gait Independent, no pain Baseline Function- Recreation/Hobbies gardening, walking without difficulty Current Functional Impairments (Reported) Functional Limitations- ADL's painful, difficulty donning/ doffing shoes and socks Functional Limitations- Mobility/Gait painful and limited to household and short community distance Functional Limitations- Recreation/ painful, difficult to get up Hobbies off ground for gardening Personal Factors Other Personal Factors That May Effect depression, hx bipolar Therapy/Recovery disortder PT-OP-C Subjective Start: 07/26/18 08:08 Freq: Status: Active Protocol: Document 08/20/18 12:30 [facility] (Rec: 08/23/18 13:31 [facility] [id number]) OP-PT Subjective Patient Comments Patient Comments No new c/o, states he feels less pain with aquatic therapy , feels more energetic after. PT-OP-G Mobility & Gait Start: 07/26/18 08:08 Freq: Status: Active Protocol: Document 07/26/18 15:21 [facility] (Rec: 07/26/18 16:05 [facility] [id number]) OP Mobility Evaluation Bed Mobility Rolling indep Supine to and from Sit indep Transfers Sit to Stand indep Floor Transfers labored, requires use of UE's on chair or table OP Gait Assessment Gait Gait Assistance Required: Independent Assistive Devices Assistive Device None Gait Deviations General Gait Pattern Decreased Stride Length Decreased Feet Clearance Factors Limiting Gait Function Factors Limiting Gait Function Decreased Strength Limited Range of Motion Pain Stair Climbing Evaluation Evaluation Level of Assist On Stairs Independent Devices Stair Climbing Assistive Devices Left Railing Right Railing Technique/Endurance Stair Climbing Direction Ascend and Descend Stair Climbing Technique Step Over Step PT-OP-K Range of Motion Start: 07/26/18 08:08 Freq: Status: Active Protocol: Document 07/26/18 15:21 [facility] (Rec: 07/26/18 16:05 [facility] [id number]) Lumbar Spine Range of Motion Lumbar Spine Active ROM Limitations Soft Tissue Tightness Muscle Weakness Pain Comments moderately decreased all motions Shoulder Goniometric Range of Motion Shoulder Measured in Degrees fiorella Shoulder ROM WFL Yes Hip Goniometric Range of Motion Hip Measured in Degrees Right Testing Position Supine Flexion w/Knee Flexed 120 Straight Leg Raise 55 Extension 5 Internal Rotation 20 External Rotation 40 left Testing Position Supine Flexion w/Knee Flexed 115 Straight Leg Raise 45 Extension 5 Internal Rotation 10 External Rotation 35 Hip ROM Limitations Hip ROM Limitations Soft Tissue Tightness Muscle Weakness Pain Knee Goniometric Range of Motion Knee Measured in Degrees fiorella Knee ROM WFL Yes Patient Position Supine Ankle and Foot Goniometric Range of Motion Ankle and Foot Measured in Degrees fiorella Ankle/Foot ROM WFL No Dorsiflexion with Knee Flexed 5 Dorsiflexion with Knee Extended 0 Plantarflexion 50 Ankle and Foot ROM Limitations ROM Limitations Soft Tissue Tightness Muscle Weakness PT-OP-M Strength Start: 07/26/18 08:08 Freq: Status: Active Protocol: Document 07/26/18 15:21 [facility] (Rec: 07/26/18 16:05 [facility] [id number]) Trunk Strength Trunk Manual Muscle Testing Testing Position Supine Flexion 3- Fair- Extension 3- Fair- Core Stabilization poor ability to activate TrA and multifidi Hip Strength Hip Manual Muscle Testing fiorella Flexion (L2) 3+ Fair+ Extension (S1) 3+ Fair+ Abduction 4- Good- External Rotation 3+ Fair+ Internal Rotation 4- Good- Knee Strength Knee Manual Muscle Testing fiorella Flexion (S2) 4+ Good+ Extension (L3) 4+ Good+ Ankle/Foot Strength Ankle and Foot Manual Muscle Testing fiorella Dorsiflexion (L4) 4+ Good+ Plantarflexion (S1) 4+ Good+ PT-OP-Q Treatments Start: 07/26/18 08:08 Freq: Status: Active Protocol: Document 08/18/18 15:23 [facility] (Rec: 08/18/18 16:04 [facility] [id number]) Cardio Equipment Recumbent Stepper (Sci-Fit) Duration (Minutes) 10 Resistance 2 Seat Position 12 Gym Equipment Shuttle Recovery Bilateral Squats Resistance 125 Reps/Time 10x1, 20x1 Shuttle Balance chains red Details balance wide and narrow front/ back, side to side bal Reps/Duration 5 min chains yellow Details wide LUIS, narrow LUIS, EO, EC Reps/Duration 5 min Comments balance Therapeutic Exercises Supine Exercises HS stretch Reps/Minutes 2x Standing Exercises 4-way hip Equipment Used L1 TB Reps/Minutes 10x resisted walk Standing Exercise Name side, fwd/bck Equipment Used green band PT-OP-S Aquatic Treatment Start: 07/26/18 08:08 Freq: Status: Active Protocol: Document 08/20/18 12:30 [facility] (Rec: 08/23/18 13:37 [facility] [id number]) Aquatics Treatment Pool Entry/Exit Pool Entry/Exit Method Stairs Assistance Standby Assistance Water Walking Lunge Walk Water Level Waist Level Walking Equipment Resistance Fins Level of Assistance Verbal Cues [place] September Water Level Chest Level Walking Equipment Resistance Fins Level of Assistance Verbal Cues Comments VCs for strong LE extension and glute activation fwd,bck,side,march Water Level Chest Level Walking Equipment Resistance Fins Level of Assistance Standby Assistance Verbal Cues Comments emphasis on postural alignment and core stab Lower Extremity Exercises squats Water Level Chest Level Reps/Duration 10x hip flex/ext, ab/ad, circles Water Level Chest Level Equipment Resistance Fins Reps/Duration 10x Lower Extremity Stretches quad stretch Body Position Standing Equipment Small Noodle HS, ITB Body Position Standing Water Level Chest Level Equipment Small Noodle Reps/Duration 2x ea Upper Extremity Exercises UE pull downs Details front Water Level Chest Level Equipment medium barbells Reps/Duration 10x shoulder flex/ext Reps/Duration 10x Comments DLS emphasis hor ab/ad Reps/Duration 10x Comments DLS emphasis Spinal Exercises SKTC, DKTC Water Level [place] Reps/Duration 2x 30 Comments at wall deep water hang Reps/Duration 1 min x 2 Comments at wall [place] Activities [place] Activities Bicycle Bicycle Backwards Cross [place] Running Hip Abduction/Adduction Sit Kicks Equipment XL belt Duration 12' Comments emphasis on postural alignment and core stab PT-OP-T Assessment and Plan Start: 07/26/18 08:08 Freq: Status: Active Protocol: Document 08/20/18 12:30 [facility] (Rec: 08/23/18 13:31 [facility] [id number]) Physical Therapy Assessment Goals Four Impairment strength Security Management Specialist Goal (LTG) Increase strength bilateral LE 's to at least 4+/5 throughout Three Impairment Functional activities Short Term Goal (STG) Patient will improve his ROM and strength sufficient to allow him to don and doff his shoes and socks with ease STG Duration 6 wks Fpc Goal (LTG) Patient will be able to tolerate resumption of gardening activities including getting down to the ground and back up without difficulty . LTG Duration 3 months Two Impairment Activity tolerance Security Management Specialist Goal (LTG) Patient will be able to resume prior activities including gardening and walking 15-20 min at a time without difficulty LTG Duration 3 months One Impairment pain Short Term Goal (STG) Decrease pain to no greater than 4/10 STG Duration 6 wks Fpc Goal (LTG) Decrease pain to no greater than 2/10 LTG Duration 3 months Physical Therapy Plan Frequency and Duration Frequency of Treatment 2x/Week Duration of Treatment 3 months Plan of Care Start Date 07/26/18 Plan of Care End Date 10/24/18 Therapeutic Interventions Therapeutic Interventions Aquatic Therapy Home Exercise Program Patient/Caregiver Education Self-Care/Home Management Next Visit Focus/Plan Next Note Type Treatment Note Next Visit Plan Continue PT, primarily aquatic PT as able for strengthening, core stab, flexibility, pain management.
--- NOTE | 2018-08-26 11:00 | PT.OTN ---
Current Diagnoses Pain in unspecified hip (08/25/18) Physical Therapy Treatment Note PT-OP-A Visit Information Start: 07/26/18 08:08 Freq: Status: Active Protocol: Document 08/25/18 10:17 SAK (Rec: 08/26/18 11:00 [facility] [id number]) Out-Patient Physical Therapy Visit Information Visit Information Visit Type Aquatic Treatment Note Visit Start Time 10:17 Visit Stop Time 11:00 Total Visit Minutes 43 Visit Number 7 Number of FLOOR WORKER WELL SERVICE Visits 0 Evaluation Information Evaluation Date 07/26/18 Precautions Precautions cardiac HTN PT-OP-B Current Condition Start: 07/26/18 08:08 Freq: Status: Active Protocol: Document 07/26/18 15:21 SAK (Rec: 07/26/18 16:05 [facility] [id number]) Current Condition History of Current Condition Onset Date 1 year Current Complaints pain bilateral hips, LBP, left buttock and thigh History of Current Condition Patient reports gradual increase in pain, gaining weight, decrease in activity tolerance. States it has been a difficult year with multiple deaths of friends and family members and he has found it hard to be motivated to put his health as a priority. Has history of bipolar disorder, states medications were not helpful. History of quadrupal bypass surgery. Treatment Goals Patient/Caregiver Goals Decrease his pain, improve his activity tolerance, return to more active lifestyle. Prior Functional Status Baseline Function- ADL's Independent Baseline Function- Mobility Independent Baseline Function- Gait Independent, no pain Baseline Function- Recreation/Hobbies gardening, walking without difficulty Current Functional Impairments (Reported) Functional Limitations- ADL's painful, difficulty donning/ doffing shoes and socks Functional Limitations- Mobility/Gait painful and limited to household and short community distance Functional Limitations- Recreation/ painful, difficult to get up Hobbies off ground for gardening Personal Factors Other Personal Factors That May Effect depression, hx bipolar Therapy/Recovery disortder PT-OP-C Subjective Start: 07/26/18 08:08 Freq: Status: Active Protocol: Document 08/25/18 10:17 SAK (Rec: 08/26/18 11:00 [facility] [id number]) OP-PT Subjective Patient Comments Patient Comments No new c/o. States he saw Dr. Cruz, gained 4 lbs over the past week. PT-OP-G Mobility & Gait Start: 07/26/18 08:08 Freq: Status: Active Protocol: Document 07/26/18 15:21 [facility] (Rec: 07/26/18 16:05 [facility] [id number]) OP Mobility Evaluation Bed Mobility Rolling indep Supine to and from Sit indep Transfers Sit to Stand indep Floor Transfers labored, requires use of UE's on chair or table OP Gait Assessment Gait Gait Assistance Required: Independent Assistive Devices Assistive Device None Gait Deviations General Gait Pattern Decreased Stride Length Decreased Feet Clearance Factors Limiting Gait Function Factors Limiting Gait Function Decreased Strength Limited Range of Motion Pain Stair Climbing Evaluation Evaluation Level of Assist On Stairs Independent Devices Stair Climbing Assistive Devices Left Railing Right Railing Technique/Endurance Stair Climbing Direction Ascend and Descend Stair Climbing Technique Step Over Step PT-OP-K Range of Motion Start: 07/26/18 08:08 Freq: Status: Active Protocol: Document 07/26/18 15:21 [facility] (Rec: 07/26/18 16:05 [facility] [id number]) Lumbar Spine Range of Motion Lumbar Spine Active ROM Limitations Soft Tissue Tightness Muscle Weakness Pain Comments moderately decreased all motions Shoulder Goniometric Range of Motion Shoulder Measured in Degrees fiorella Shoulder ROM WFL Yes Hip Goniometric Range of Motion Hip Measured in Degrees Right Testing Position Supine Flexion w/Knee Flexed 120 Straight Leg Raise 55 Extension 5 Internal Rotation 20 External Rotation 40 left Testing Position Supine Flexion w/Knee Flexed 115 Straight Leg Raise 45 Extension 5 Internal Rotation 10 External Rotation 35 Hip ROM Limitations Hip ROM Limitations Soft Tissue Tightness Muscle Weakness Pain Knee Goniometric Range of Motion Knee Measured in Degrees fiorella Knee ROM WFL Yes Patient Position Supine Ankle and Foot Goniometric Range of Motion Ankle and Foot Measured in Degrees fiorella Ankle/Foot ROM WFL No Dorsiflexion with Knee Flexed 5 Dorsiflexion with Knee Extended 0 Plantarflexion 50 Ankle and Foot ROM Limitations ROM Limitations Soft Tissue Tightness Muscle Weakness PT-OP-M Strength Start: 07/26/18 08:08 Freq: Status: Active Protocol: Document 07/26/18 15:21 [facility] (Rec: 07/26/18 16:05 [facility] [id number]) Trunk Strength Trunk Manual Muscle Testing Testing Position Supine Flexion 3- Fair- Extension 3- Fair- Core Stabilization poor ability to activate TrA and multifidi Hip Strength Hip Manual Muscle Testing [place] Flexion (L2) 3+ Fair+ Extension (S1) 3+ Fair+ Abduction 4- Good- External Rotation 3+ Fair+ Internal Rotation 4- Good- Knee Strength Knee Manual Muscle Testing fi[place] Flexion (S2) 4+ Good+ Extension (L3) 4+ Good+ Ankle/Foot Strength Ankle and Foot Manual Muscle Testing fiorella Dorsiflexion (L4) 4+ Good+ Plantarflexion (S1) 4+ Good+ PT-OP-Q Treatments Start: 07/26/18 08:08 Freq: Status: Active Protocol: Document 08/18/18 15:23 [facility] (Rec: 08/18/18 16:04 [facility] [id number]) Cardio Equipment Recumbent Stepper (Sci-Fit) Duration (Minutes) 10 Resistance 2 Seat Position 12 Gym Equipment Shuttle Recovery Bilateral Squats Resistance 125 Reps/Time 10x1, 20x1 Shuttle Balance chains red Details balance wide and narrow front/ back, side to side bal Reps/Duration 5 min chains yellow Details wide LUIS, narrow LUIS, EO, EC Reps/Duration 5 min Comments balance Therapeutic Exercises Supine Exercises HS stretch Reps/Minutes 2x Standing Exercises 4-way hip Equipment Used L1 TB Reps/Minutes 10x resisted walk Standing Exercise Name side, fwd/bck Equipment Used green band PT-OP-S Aquatic Treatment Start: 07/26/18 08:08 Freq: Status: Active Protocol: Document 08/25/18 10:17 [facility] (Rec: 08/26/18 11:00 [facility] [id number]) Aquatics Treatment Pool Entry/Exit Pool Entry/Exit Method Stairs Assistance Standby Assistance Water Walking Lunge Walk Water Level Waist Level Walking Equipment Resistance Fins Level of Assistance Verbal Cues [place] September Water Level Chest Level Walking Equipment Resistance Fins Level of Assistance Verbal Cues Comments VCs for strong LE extension and glute activation fwd,bck,side,march Water Level Chest Level Walking Equipment Resistance Fins Level of Assistance Standby Assistance Verbal Cues Comments emphasis on postural alignment and core stab Lower Extremity Exercises squats Water Level Chest Level Reps/Duration 10x hip flex/ext, ab/ad, circles Water Level Chest Level Equipment Resistance Fins Reps/Duration 15x Lower Extremity Stretches quad stretch Body Position Standing Equipment Large Noodle HS, ITB Body Position Standing Water Level Chest Level Equipment Large Noodle Reps/Duration 2x ea Upper Extremity Exercises UE pull downs Details front Water Level Chest Level Equipment medium barbells Reps/Duration 10x Spinal Exercises SKTC, DKTC Water Level [place] Reps/Duration 2x 30 Comments at wall deep water hang Reps/Duration 1 min x 2 Comments at wall [place] Activities [place] Activities Bicycle Bicycle Backwards Cross [place] Running Hip Abduction/Adduction Sit Kicks Other Activities 5x 30:30 intervals running Equipment XL belt, large resistance fins Duration 15' Comments emphasis on postural alignment and core stab PT-OP-T Assessment and Plan Start: 07/26/18 08:08 Freq: Status: Active Protocol: Document 08/25/18 10:17 FITO (Rec: 08/26/18 11:00 [facility] [id number]) Physical Therapy Assessment Goals Four Impairment strength Usp Goal (LTG) Increase strength bilateral LE 's to at least 4+/5 throughout Three Impairment Functional activities Short Term Goal (STG) Patient will improve his ROM and strength sufficient to allow him to don and doff his shoes and socks with ease STG Duration 6 wks Emergency Management Program Specialist Goal (LTG) Patient will be able to tolerate resumption of gardening activities including getting down to the ground and back up without difficulty . LTG Duration 3 months Two Impairment Activity tolerance Usp Goal (LTG) Patient will be able to resume prior activities including gardening and walking 15-20 min at a time without difficulty LTG Duration 3 months One Impairment pain Short Term Goal (STG) Decrease pain to no greater than 4/10 STG Duration 6 wks Usp Goal (LTG) Decrease pain to no greater than 2/10 LTG Duration 3 months Progress Towards Goals Progress Towards Goals Progressing Toward Goals Assessment Summary Assessment Able to progress aquatic exercises with increase in repetitions and addition of 5 rounds of intervals Physical Therapy Plan Frequency and Duration Frequency of Treatment 2x/Week Duration of Treatment 3 months Plan of Care Start Date 07/26/18 Plan of Care End Date 10/24/18 Therapeutic Interventions Therapeutic Interventions Aquatic Therapy Home Exercise Program Patient/Caregiver Education Self-Care/Home Management Next Visit Focus/Plan Next Note Type Treatment Note Next Visit Plan Continue PT per POC.
--- NOTE | 2018-08-27 15:16 | PT.OTN ---
Current Diagnoses Pain in unspecified hip (08/27/18) Physical Therapy Treatment Note PT-OP-A Visit Information Start: 07/26/18 08:08 Freq: Status: Active Protocol: Document 08/27/18 11:00 MEGHNA (Rec: 08/27/18 15:16 LJ [id number]) Out-Patient Physical Therapy Visit Information Visit Information Visit Type Aquatic Treatment Note Visit Start Time 11:00 Visit Stop Time 11:45 Total Visit Minutes 45 Visit Number 8 Number of SERVICE STATION CONSOLE OPERATOR Visits 1 Precautions Precautions cardiac HTN PT-OP-B Current Condition Start: 07/26/18 08:08 Freq: Status: Active Protocol: Document 07/26/18 15:21 SAK (Rec: 07/26/18 16:05 SAK [id number]) Current Condition History of Current Condition Onset Date 1 year Current Complaints pain bilateral hips, LBP, left buttock and thigh History of Current Condition Patient reports gradual increase in pain, gaining weight, decrease in activity tolerance. States it has been a difficult year with multiple deaths of friends and family members and he has found it hard to be motivated to put his health as a priority. Has history of bipolar disorder, states medications were not helpful. History of quadrupal bypass surgery. Treatment Goals Patient/Caregiver Goals Decrease his pain, improve his activity tolerance, return to more active lifestyle. Prior Functional Status Baseline Function- ADL's Independent Baseline Function- Mobility Independent Baseline Function- Gait Independent, no pain Baseline Function- Recreation/Hobbies gardening, walking without difficulty Current Functional Impairments (Reported) Functional Limitations- ADL's painful, difficulty donning/ doffing shoes and socks Functional Limitations- Mobility/Gait painful and limited to household and short community distance Functional Limitations- Recreation/ painful, difficult to get up Hobbies off ground for gardening Personal Factors Other Personal Factors That May Effect depression, hx bipolar Therapy/Recovery disortder PT-OP-C Subjective Start: 07/26/18 08:08 Freq: Status: Active Protocol: Document 08/27/18 11:00 MEGHNA (Rec: 08/27/18 15:16 LJ [id number]) OP-PT Subjective Patient Comments Patient Comments Pt reports having no pain at present but after walking, having pain in QL and right thoracic area PT-OP-G Mobility & Gait Start: 07/26/18 08:08 Freq: Status: Active Protocol: Document 07/26/18 15:21 SAK (Rec: 07/26/18 16:05 [facility] [id number]) OP Mobility Evaluation Bed Mobility Rolling indep Supine to and from Sit indep Transfers Sit to Stand indep Floor Transfers labored, requires use of UE's on chair or table OP Gait Assessment Gait Gait Assistance Required: Independent Assistive Devices Assistive Device None Gait Deviations General Gait Pattern Decreased Stride Length Decreased Feet Clearance Factors Limiting Gait Function Factors Limiting Gait Function Decreased Strength Limited Range of Motion Pain Stair Climbing Evaluation Evaluation Level of Assist On Stairs Independent Devices Stair Climbing Assistive Devices Left Railing Right Railing Technique/Endurance Stair Climbing Direction Ascend and Descend Stair Climbing Technique Step Over Step PT-OP-K Range of Motion Start: 07/26/18 08:08 Freq: Status: Active Protocol: Document 07/26/18 15:21 [facility] (Rec: 07/26/18 16:05 [facility] [id number]) Lumbar Spine Range of Motion Lumbar Spine Active ROM Limitations Soft Tissue Tightness Muscle Weakness Pain Comments moderately decreased all motions Shoulder Goniometric Range of Motion Shoulder Measured in Degrees fiorella Shoulder ROM WFL Yes Hip Goniometric Range of Motion Hip Measured in Degrees Right Testing Position Supine Flexion w/Knee Flexed 120 Straight Leg Raise 55 Extension 5 Internal Rotation 20 External Rotation 40 left Testing Position Supine Flexion w/Knee Flexed 115 Straight Leg Raise 45 Extension 5 Internal Rotation 10 External Rotation 35 Hip ROM Limitations Hip ROM Limitations Soft Tissue Tightness Muscle Weakness Pain Knee Goniometric Range of Motion Knee Measured in Degrees fiorella Knee ROM WFL Yes Patient Position Supine Ankle and Foot Goniometric Range of Motion Ankle and Foot Measured in Degrees fiorella Ankle/Foot ROM WFL No Dorsiflexion with Knee Flexed 5 Dorsiflexion with Knee Extended 0 Plantarflexion 50 Ankle and Foot ROM Limitations ROM Limitations Soft Tissue Tightness Muscle Weakness PT-OP-M Strength Start: 07/26/18 08:08 Freq: Status: Active Protocol: Document 07/26/18 15:21 [facility] (Rec: 07/26/18 16:05 [facility] [id number]) Trunk Strength Trunk Manual Muscle Testing Testing Position Supine Flexion 3- Fair- Extension 3- Fair- Core Stabilization poor ability to activate TrA and multifidi Hip Strength Hip Manual Muscle Testing [place] Flexion (L2) 3+ Fair+ Extension (S1) 3+ Fair+ Abduction 4- Good- External Rotation 3+ Fair+ Internal Rotation 4- Good- Knee Strength Knee Manual Muscle Testing [place] Flexion (S2) 4+ Good+ Extension (L3) 4+ Good+ Ankle/Foot Strength Ankle and Foot Manual Muscle Testing fi[place] Dorsiflexion (L4) 4+ Good+ Plantarflexion (S1) 4+ Good+ PT-OP-Q Treatments Start: 07/26/18 08:08 Freq: Status: Active Protocol: Document 08/18/18 15:23 SAK (Rec: 08/18/18 16:04 SAK [id number]) Cardio Equipment Recumbent Stepper (Sci-Fit) Duration (Minutes) 10 Resistance 2 Seat Position 12 Gym Equipment Shuttle Recovery Bilateral Squats Resistance 125 Reps/Time 10x1, 20x1 Shuttle Balance chains red Details balance wide and narrow front/ back, side to side bal Reps/Duration 5 min chains yellow Details wide LUIS, narrow LUIS, EO, EC Reps/Duration 5 min Comments balance Therapeutic Exercises Supine Exercises HS stretch Reps/Minutes 2x Standing Exercises 4-way hip Equipment Used L1 TB Reps/Minutes 10x resisted walk Standing Exercise Name side, fwd/bck Equipment Used green band PT-OP-S Aquatic Treatment Start: 07/26/18 08:08 Freq: Status: Active Protocol: Document 08/27/18 11:00 LJ (Rec: 08/27/18 15:16 LJ [id number]) Aquatics Treatment Pool Entry/Exit Pool Entry/Exit Method Stairs Assistance Standby Assistance Water Walking Lunge Walk Water Level Waist Level Walking Equipment Resistance Fins Level of Assistance Verbal Cues [place] September Water Level Chest Level Walking Equipment Resistance Fins Level of Assistance Verbal Cues Comments VCs for strong LE extension and glute activation fwd,bck,side,march Water Level Chest Level Walking Equipment Resistance Fins Level of Assistance Standby Assistance Verbal Cues Comments emphasis on postural alignment and core stab Lower Extremity Exercises HS curls Body Position Standing Water Level Chest Level Equipment Resistance Fins Reps/Duration 15 fi[place]lla Comments Cues for post pel;fabiola tilt HS curls and kick backs Body Position Standing Water Level Chest Level Reps/Duration 10 bilat Comments manual cues for activating gluteal muscles squats Water Level Chest Level Reps/Duration 10x Comments arm movement to challenge core control hip flex/ext, ab/ad, circles Water Level Chest Level Equipment Resistance Fins Reps/Duration 15x Comments no UE support Lower Extremity Stretches quad stretch Body Position Standing Equipment Large Noodle HS, ITB Body Position Standing Water Level Chest Level Equipment Large Noodle Reps/Duration 2x ea Upper Extremity Exercises UE pull downs Details front Water Level Chest Level Equipment medium barbells Reps/Duration 10x shoulder flex/ext Reps/Duration 10x Comments DLS emphasis hor ab/ad Reps/Duration 10x Comments DLS emphasis Spinal Exercises SKTC, DKTC Water Level Waist Level Reps/Duration 2x 30 Comments at wall Balance tandem walking Body Position Standing Water Level Chest Level Reps/Duration 3 min Comments vc for positioning Mobile Activities Mobile Activities Cross [place] Running Hip Abduction/Adduction Other Activities 6x 30:30 intervals running Equipment 2XL belts, large resistance fins Duration 15' Comments emphasis on postural alignment and core stab PT-OP-T Assessment and Plan Start: 07/26/18 08:08 Freq: Status: Active Protocol: Document 08/27/18 11:00 MEGHNA (Rec: 08/27/18 15:16 MEGHNA [id number]) Physical Therapy Assessment Goals Four Impairment strength Campaign Specialist Goal (LTG) Increase strength bilateral LE 's to at least 4+/5 throughout Three Impairment Functional activities Short Term Goal (STG) Patient will improve his ROM and strength sufficient to allow him to don and doff his shoes and socks with ease STG Duration 6 wks [facility] Goal (LTG) Patient will be able to tolerate resumption of gardening activities including getting down to the ground and back up without difficulty . LTG Duration 3 months Two Impairment Activity tolerance [facility] Goal (LTG) Patient will be able to resume prior activities including gardening and walking 15-20 min at a time without difficulty LTG Duration 3 months One Impairment pain Short Term Goal (STG) Decrease pain to no greater than 4/10 STG Duration 6 wks [facility] Goal (LTG) Decrease pain to no greater than 2/10 LTG Duration 3 months Assessment Summary Assessment Pt tolerated increase in intensity and additional set in deep water. Less use of UEs in standing LE exercises in shallow. Pt requires mod cues for relaxing LEs during HS stretch. Pt remained in pool swimming for additional 10 min after therapy session ended. Physical Therapy Plan Frequency and Duration Frequency of Treatment 2x/Week Duration of Treatment 3 months Plan of Care Start Date 07/26/18 Plan of Care End Date 10/24/18 Therapeutic Interventions Therapeutic Interventions Aquatic Therapy Home Exercise Program Patient/Caregiver Education Self-Care/Home Management Next Visit Focus/Plan Next Note Type Treatment Note Next Visit Plan Continue aquatic therapy adding ankle weights for shallow water exercise to compare intensity in relation to fins. Progress deep water intervals with additional set.
--- NOTE | 2018-09-01 15:35 | PT.OTN ---
Current Diagnoses Pain in unspecified hip (09/01/18) Physical Therapy Treatment Note PT-OP-A Visit Information Start: 07/26/18 08:08 Freq: Status: Active Protocol: Document 09/01/18 11:45 MEGHNA (Rec: 09/01/18 15:27 LJ [id number]) Out-Patient Physical Therapy Visit Information Visit Information Visit Type Aquatic Treatment Note Visit Start Time 11:45 Visit Stop Time 12:30 Total Visit Minutes 45 Visit Number 9 Number of PACKER FUSER Visits 2 Precautions Precautions cardiac HTN PT-OP-B Current Condition Start: 07/26/18 08:08 Freq: Status: Active Protocol: Document 07/26/18 15:21 SAK (Rec: 07/26/18 16:05 SAK [id number]) Current Condition History of Current Condition Onset Date 1 year Current Complaints pain bilateral hips, LBP, left buttock and thigh History of Current Condition Patient reports gradual increase in pain, gaining weight, decrease in activity tolerance. States it has been a difficult year with multiple deaths of friends and family members and he has found it hard to be motivated to put his health as a priority. Has history of bipolar disorder, states medications were not helpful. History of quadrupal bypass surgery. Treatment Goals Patient/Caregiver Goals Decrease his pain, improve his activity tolerance, return to more active lifestyle. Prior Functional Status Baseline Function- ADL's Independent Baseline Function- Mobility Independent Baseline Function- Gait Independent, no pain Baseline Function- Recreation/Hobbies gardening, walking without difficulty Current Functional Impairments (Reported) Functional Limitations- ADL's painful, difficulty donning/ doffing shoes and socks Functional Limitations- Mobility/Gait painful and limited to household and short community distance Functional Limitations- Recreation/ painful, difficult to get up Hobbies off ground for gardening Personal Factors Other Personal Factors That May Effect depression, hx bipolar Therapy/Recovery disortder PT-OP-C Subjective Start: 07/26/18 08:08 Freq: Status: Active Protocol: Document 09/01/18 11:45 MEGHNA (Rec: 09/01/18 15:27 LJ [id number]) OP-PT Subjective Patient Comments Patient Comments Pt reports feeling stiff in hips, hortensia in am getting out of bed PT-OP-G Mobility & Gait Start: 07/26/18 08:08 Freq: Status: Active Protocol: Document 07/26/18 15:21 SAK (Rec: 07/26/18 16:05 [facility] [id number]) OP Mobility Evaluation Bed Mobility Rolling indep Supine to and from Sit indep Transfers Sit to Stand indep Floor Transfers labored, requires use of UE's on chair or table OP Gait Assessment Gait Gait Assistance Required: Independent Assistive Devices Assistive Device None Gait Deviations General Gait Pattern Decreased Stride Length Decreased Feet Clearance Factors Limiting Gait Function Factors Limiting Gait Function Decreased Strength Limited Range of Motion Pain Stair Climbing Evaluation Evaluation Level of Assist On Stairs Independent Devices Stair Climbing Assistive Devices Left Railing Right Railing Technique/Endurance Stair Climbing Direction Ascend and Descend Stair Climbing Technique Step Over Step PT-OP-K Range of Motion Start: 07/26/18 08:08 Freq: Status: Active Protocol: Document 07/26/18 15:21 [facility] (Rec: 07/26/18 16:05 [facility] [id number]) Lumbar Spine Range of Motion Lumbar Spine Active ROM Limitations Soft Tissue Tightness Muscle Weakness Pain Comments moderately decreased all motions Shoulder Goniometric Range of Motion Shoulder Measured in Degrees fiorella Shoulder ROM WFL Yes Hip Goniometric Range of Motion Hip Measured in Degrees Right Testing Position Supine Flexion w/Knee Flexed 120 Straight Leg Raise 55 Extension 5 Internal Rotation 20 External Rotation 40 left Testing Position Supine Flexion w/Knee Flexed 115 Straight Leg Raise 45 Extension 5 Internal Rotation 10 External Rotation 35 Hip ROM Limitations Hip ROM Limitations Soft Tissue Tightness Muscle Weakness Pain Knee Goniometric Range of Motion Knee Measured in Degrees fiorella Knee ROM WFL Yes Patient Position Supine Ankle and Foot Goniometric Range of Motion Ankle and Foot Measured in Degrees fiorella Ankle/Foot ROM WFL No Dorsiflexion with Knee Flexed 5 Dorsiflexion with Knee Extended 0 Plantarflexion 50 Ankle and Foot ROM Limitations ROM Limitations Soft Tissue Tightness Muscle Weakness PT-OP-M Strength Start: 07/26/18 08:08 Freq: Status: Active Protocol: Document 07/26/18 15:21 [facility] (Rec: 07/26/18 16:05 [facility] [id number]) Trunk Strength Trunk Manual Muscle Testing Testing Position Supine Flexion 3- Fair- Extension 3- Fair- Core Stabilization poor ability to activate TrA and multifidi Hip Strength Hip Manual Muscle Testing fiorella Flexion (L2) 3+ Fair+ Extension (S1) 3+ Fair+ Abduction 4- Good- External Rotation 3+ Fair+ Internal Rotation 4- Good- Knee Strength Knee Manual Muscle Testing fiorella Flexion (S2) 4+ Good+ Extension (L3) 4+ Good+ Ankle/Foot Strength Ankle and Foot Manual Muscle Testing fiorella Dorsiflexion (L4) 4+ Good+ Plantarflexion (S1) 4+ Good+ PT-OP-Q Treatments Start: 07/26/18 08:08 Freq: Status: Active Protocol: Document 08/18/18 15:23 SAK (Rec: 08/18/18 16:04 SAK [id number]) Cardio Equipment Recumbent Stepper (Sci-Fit) Duration (Minutes) 10 Resistance 2 Seat Position 12 Gym Equipment Shuttle Recovery Bilateral Squats Resistance 125 Reps/Time 10x1, 20x1 Shuttle Balance chains red Details balance wide and narrow front/ back, side to side bal Reps/Duration 5 min chains yellow Details wide LUIS, narrow LUIS, EO, EC Reps/Duration 5 min Comments balance Therapeutic Exercises Supine Exercises HS stretch Reps/Minutes 2x Standing Exercises 4-way hip Equipment Used L1 TB Reps/Minutes 10x resisted walk Standing Exercise Name side, fwd/bck Equipment Used green band PT-OP-S Aquatic Treatment Start: 07/26/18 08:08 Freq: Status: Active Protocol: Document 09/01/18 11:45 LJ (Rec: 09/01/18 15:27 LJ [id number]) Aquatics Treatment Pool Entry/Exit Pool Entry/Exit Method Stairs Assistance Independent Water Walking Lunge Walk Water Level Waist Level Level of Assistance Verbal Cues Comments #4 wts [place] March Water Level Chest Level Comments VCs for strong LE extension and glute activation fwd,bck,side,september Water Level Chest Level Level of Assistance Standby Assistance Verbal Cues Comments emphasis on postural alignment and core stab Lower Extremity Exercises HS curls Body Position Standing Water Level Chest Level Equipment Resistance Fins Reps/Duration 15 fiorella Comments Cues for post pelvic tilt HS curls and kick backs Body Position Standing Water Level Chest Level Reps/Duration 10 bilat squats Water Level Chest Level Reps/Duration 10x Comments arm movement to challenge core control hip flex/ext, ab/ad, circles Water Level Chest Level Equipment Resistance Fins Reps/Duration 15x Comments no UE support Lower Extremity Stretches quad stretch Body Position Standing Equipment Large Noodle HS, ITB Body Position Standing Water Level Chest Level Equipment Large Noodle Reps/Duration 2x ea Upper Extremity Exercises string the bow Reps/Duration 2 x 10 bilat Comments speedo hand bells UE pull downs Details front Water Level Chest Level Equipment medium barbells Reps/Duration 2 x 10 shoulder flex/ext Reps/Duration 2 x 10 Comments DLS emphasis hor ab/ad Reps/Duration 2 x 10 Comments DLS emphasis Balance static standing w/perturbations Body Position Standing Water Level Chest Level Comments Cues for stabilizing [place] Activities [place] Activities Cross [place] Running Other Activities 6x 30:30 intervals running and cc ski Equipment 2XL belts, #4 wts Duration 12 min Comments emphasis on postural alignment and core stab PT-OP-T Assessment and Plan Start: 07/26/18 08:08 Freq: Status: Active Protocol: Document 09/01/18 11:45 LJ (Rec: 09/01/18 15:27 LJ [id number]) Physical Therapy Assessment Goals Four Impairment strength Intermediate Goal (LTG) Increase strength bilateral LE 's to at least 4+/5 throughout Three Impairment Functional activities Short Term Goal (STG) Patient will improve his ROM and strength sufficient to allow him to don and doff his shoes and socks with ease STG Duration 6 wks Intermediate Goal (LTG) Patient will be able to tolerate resumption of gardening activities including getting down to the ground and back up without difficulty . LTG Duration 3 months Two Impairment Activity tolerance Intermediate Goal (LTG) Patient will be able to resume prior activities including gardening and walking 15-20 min at a time without difficulty LTG Duration 3 months One Impairment pain Short Term Goal (STG) Decrease pain to no greater than 4/10 STG Duration 6 wks Guest Services Lead Goal (LTG) Decrease pain to no greater than 2/10 LTG Duration 3 months Assessment Summary Assessment Pt tolerated increase in intensity and additional set in deep water. Less use of UEs in standing LE exercises in shallow. Pt requires mod cues for relaxing LEs during HS stretch. Pt remained in pool swimming for additional 10 min after therapy session ended using lg barbells and swimming sith float belt Physical Therapy Plan Frequency and Duration Frequency of Treatment 2x/Week Duration of Treatment 3 months Plan of Care Start Date 07/26/18 Plan of Care End Date 10/24/18 Therapeutic Interventions Therapeutic Interventions Aquatic Therapy Home Exercise Program Patient/Caregiver Education Self-Care/Home Management Next Visit Focus/Plan Next Note Type Treatment Note Next Visit Plan Continue aquatic therapy adding more core strengthening exercises as tolerated.
--- NOTE | 2018-09-03 13:35 | PT.OTN ---
Current Diagnoses Pain in unspecified hip (09/03/18) Physical Therapy Treatment Note PT-OP-A Visit Information Start: 07/26/18 08:08 Freq: Status: Active Protocol: Document 09/03/18 11:00 MEGHNA (Rec: 09/03/18 13:35 LJ [email or web address]) Out-Patient Physical Therapy Visit Information Visit Information Visit Type Aquatic Treatment Note Visit Start Time 11:00 Visit Stop Time 11:45 Total Visit Minutes 45 Visit Number 10 Number of GUTTER INSTALLER Visits 3 Precautions Precautions cardiac HTN PT-OP-B Current Condition Start: 07/26/18 08:08 Freq: Status: Active Protocol: Document 07/26/18 15:21 SAK (Rec: 07/26/18 16:05 SAK [id number]) Current Condition History of Current Condition Onset Date 1 year Current Complaints pain bilateral hips, LBP, left buttock and thigh History of Current Condition Patient reports gradual increase in pain, gaining weight, decrease in activity tolerance. States it has been a difficult year with multiple deaths of friends and family members and he has found it hard to be motivated to put his health as a priority. Has history of bipolar disorder, states medications were not helpful. History of quadrupal bypass surgery. Treatment Goals Patient/Caregiver Goals Decrease his pain, improve his activity tolerance, return to more active lifestyle. Prior Functional Status Baseline Function- ADL's Independent Baseline Function- Mobility Independent Baseline Function- Gait Independent, no pain Baseline Function- Recreation/Hobbies gardening, walking without difficulty Current Functional Impairments (Reported) Functional Limitations- ADL's painful, difficulty donning/ doffing shoes and socks Functional Limitations- Mobility/Gait painful and limited to household and short community distance Functional Limitations- Recreation/ painful, difficult to get up Hobbies off ground for gardening Personal Factors Other Personal Factors That May Effect depression, hx bipolar Therapy/Recovery disortder PT-OP-C Subjective Start: 07/26/18 08:08 Freq: Status: Active Protocol: Document 09/03/18 11:00 MEGHNA (Rec: 09/03/18 13:35 LJ [id number]) OP-PT Subjective Patient Comments Patient Comments Pt arrived 6 min early and began moving around in water. Still c/o stiffness and inability to stretch HS fully PT-OP-G Mobility & Gait Start: 07/26/18 08:08 Freq: Status: Active Protocol: Document 07/26/18 15:21 [facility] (Rec: 07/26/18 16:05 [facility] [id number]) OP Mobility Evaluation Bed Mobility Rolling indep Supine to and from Sit indep Transfers Sit to Stand indep Floor Transfers labored, requires use of UE's on chair or table OP Gait Assessment Gait Gait Assistance Required: Independent Assistive Devices Assistive Device None Gait Deviations General Gait Pattern Decreased Stride Length Decreased Feet Clearance Factors Limiting Gait Function Factors Limiting Gait Function Decreased Strength Limited Range of Motion Pain Stair Climbing Evaluation Evaluation Level of Assist On Stairs Independent Devices Stair Climbing Assistive Devices Left Railing Right Railing Technique/Endurance Stair Climbing Direction Ascend and Descend Stair Climbing Technique Step Over Step PT-OP-K Range of Motion Start: 07/26/18 08:08 Freq: Status: Active Protocol: Document 07/26/18 15:21 [facility] (Rec: 07/26/18 16:05 [facility] [id number]) Lumbar Spine Range of Motion Lumbar Spine Active ROM Limitations Soft Tissue Tightness Muscle Weakness Pain Comments moderately decreased all motions Shoulder Goniometric Range of Motion Shoulder Measured in Degrees fiorella Shoulder ROM WFL Yes Hip Goniometric Range of Motion Hip Measured in Degrees Right Testing Position Supine Flexion w/Knee Flexed 120 Straight Leg Raise 55 Extension 5 Internal Rotation 20 External Rotation 40 left Testing Position Supine Flexion w/Knee Flexed 115 Straight Leg Raise 45 Extension 5 Internal Rotation 10 External Rotation 35 Hip ROM Limitations Hip ROM Limitations Soft Tissue Tightness Muscle Weakness Pain Knee Goniometric Range of Motion Knee Measured in Degrees fiorella Knee ROM WFL Yes Patient Position Supine Ankle and Foot Goniometric Range of Motion Ankle and Foot Measured in Degrees fiorella Ankle/Foot ROM WFL No Dorsiflexion with Knee Flexed 5 Dorsiflexion with Knee Extended 0 Plantarflexion 50 Ankle and Foot ROM Limitations ROM Limitations Soft Tissue Tightness Muscle Weakness PT-OP-M Strength Start: 07/26/18 08:08 Freq: Status: Active Protocol: Document 07/26/18 15:21 [facility] (Rec: 07/26/18 16:05 [facility] [id number]) Trunk Strength Trunk Manual Muscle Testing Testing Position Supine Flexion 3- Fair- Extension 3- Fair- Core Stabilization poor ability to activate TrA and multifidi Hip Strength Hip Manual Muscle Testing fiorella Flexion (L2) 3+ Fair+ Extension (S1) 3+ Fair+ Abduction 4- Good- External Rotation 3+ Fair+ Internal Rotation 4- Good- Knee Strength Knee Manual Muscle Testing fiorella Flexion (S2) 4+ Good+ Extension (L3) 4+ Good+ Ankle/Foot Strength Ankle and Foot Manual Muscle Testing fiorella Dorsiflexion (L4) 4+ Good+ Plantarflexion (S1) 4+ Good+ PT-OP-Q Treatments Start: 07/26/18 08:08 Freq: Status: Active Protocol: Document 08/18/18 15:23 SAK (Rec: 08/18/18 16:04 SAK [id number]) Cardio Equipment Recumbent Stepper (Sci-Fit) Duration (Minutes) 10 Resistance 2 Seat Position 12 Gym Equipment Shuttle Recovery Bilateral Squats Resistance 125 Reps/Time 10x1, 20x1 Shuttle Balance chains red Details balance wide and narrow front/ back, side to side bal Reps/Duration 5 min chains yellow Details wide LUIS, narrow LUIS, EO, EC Reps/Duration 5 min Comments balance Therapeutic Exercises Supine Exercises HS stretch Reps/Minutes 2x Standing Exercises 4-way hip Equipment Used L1 TB Reps/Minutes 10x resisted walk Standing Exercise Name side, fwd/bck Equipment Used green band PT-OP-S Aquatic Treatment Start: 07/26/18 08:08 Freq: Status: Active Protocol: Document 09/03/18 11:00 LJ (Rec: 09/03/18 13:35 LJ [email or web address]) Aquatics Treatment Pool Entry/Exit Pool Entry/Exit Method Stairs Assistance Independent Water Walking Lunge Walk Water Level Waist Level Level of Assistance Verbal Cues Comments #4 wts [place] March Water Level Chest Level Comments VCs for strong LE extension and glute activation fwd,bck,side,september Water Level Chest Level Level of Assistance Standby Assistance Verbal Cues Comments emphasis on postural alignment and core stab Lower Extremity Exercises HS curls Body Position Standing Water Level Chest Level Reps/Duration 15 fiorella Comments Cues for post pelvic tilt HS curls and kick backs Body Position Standing Water Level Chest Level Reps/Duration 10 bilat Comments cues for no hyperextension hip flex/ext, ab/ad, circles Water Level Chest Level Equipment Resistance Fins Reps/Duration 15x Comments no UE support 50% Lower Extremity Stretches Gastroc, soleus Body Position Standing Water Level Chest Level Reps/Duration 4x ea Comments at wall quad stretch Body Position Standing Equipment Large Noodle HS, ITB Body Position Standing Water Level Chest Level Reps/Duration 4x ea Comments at wall Upper Extremity Exercises string the bow Reps/Duration 2 x 10 bilat Comments speedo hand bells UE pull downs Details front Water Level Chest Level Equipment medium barbells Reps/Duration 2 x 10 shoulder flex/ext Reps/Duration 2 x 10 Comments DLS emphasis hor ab/ad Reps/Duration 2 x 10 Comments DLS emphasis Spinal Exercises SKTC, DKTC Water Level Waist Level Reps/Duration 2x 30 Comments at wall [place] Activities [place] Activities Cross Country Running Other Activities 5x 30:30 intervals running and cc ski pendulum x10 Corner SLR x10 Equipment 2XL belts Comments emphasis on postural alignment and core stab PT-OP-T Assessment and Plan Start: 07/26/18 08:08 Freq: Status: Active Protocol: Document 09/03/18 11:00 MEGHNA (Rec: 09/03/18 13:35 MEGHNA [id number]) Physical Therapy Assessment Goals Four Impairment strength Agricultural Education Teacher Goal (LTG) Increase strength bilateral LE 's to at least 4+/5 throughout Three Impairment Functional activities Short Term Goal (STG) Patient will improve his ROM and strength sufficient to allow him to don and doff his shoes and socks with ease STG Duration 6 wks Halfway Goal (LTG) Patient will be able to tolerate resumption of gardening activities including getting down to the ground and back up without difficulty . LTG Duration 3 months Two Impairment Activity tolerance Agricultural Education Teacher Goal (LTG) Patient will be able to resume prior activities including gardening and walking 15-20 min at a time without difficulty LTG Duration 3 months One Impairment pain Short Term Goal (STG) Decrease pain to no greater than 4/10 STG Duration 6 wks Agricultural Education Teacher Goal (LTG) Decrease pain to no greater than 2/10 LTG Duration 3 months Assessment Summary Assessment Therapist decreased number of reps in deep water d/t pt over working. Pt balance improving as well as scapular stabilization for reduction of UT tension and fatigue Physical Therapy Plan Frequency and Duration Frequency of Treatment 2x/Week Duration of Treatment 3 months Plan of Care Start Date 07/26/18 Plan of Care End Date 10/24/18 Therapeutic Interventions Therapeutic Interventions Aquatic Therapy Home Exercise Program Patient/Caregiver Education Self-Care/Home Management Next Visit Focus/Plan Next Note Type Treatment Note Next Visit Plan Continue aquatic therapy adding more core strengthening exercises as tolerated.
--- NOTE | 2018-09-17 15:05 | PT.OTN ---
Current Diagnoses Pain in unspecified hip (09/17/18) Physical Therapy Treatment Note PT-OP-A Visit Information Start: 07/26/18 08:08 Freq: Status: Active Protocol: Document 09/17/18 11:45 MEGHNA (Rec: 09/17/18 15:05 LJ [id number]) Out-Patient Physical Therapy Visit Information Visit Information Visit Type Aquatic Treatment Note Visit Start Time 11:45 Visit Stop Time 12:30 Total Visit Minutes 45 Visit Number 11 Number of CHILDREN'S TUTOR Visits 4 Precautions Precautions cardiac HTN PT-OP-B Current Condition Start: 07/26/18 08:08 Freq: Status: Active Protocol: Document 07/26/18 15:21 SAK (Rec: 07/26/18 16:05 SAK [id number]) Current Condition History of Current Condition Onset Date 1 year Current Complaints pain bilateral hips, LBP, left buttock and thigh History of Current Condition Patient reports gradual increase in pain, gaining weight, decrease in activity tolerance. States it has been a difficult year with multiple deaths of friends and family members and he has found it hard to be motivated to put his health as a priority. Has history of bipolar disorder, states medications were not helpful. History of quadrupal bypass surgery. Treatment Goals Patient/Caregiver Goals Decrease his pain, improve his activity tolerance, return to more active lifestyle. Prior Functional Status Baseline Function- ADL's Independent Baseline Function- Mobility Independent Baseline Function- Gait Independent, no pain Baseline Function- Recreation/Hobbies gardening, walking without difficulty Current Functional Impairments (Reported) Functional Limitations- ADL's painful, difficulty donning/ doffing shoes and socks Functional Limitations- Mobility/Gait painful and limited to household and short community distance Functional Limitations- Recreation/ painful, difficult to get up Hobbies off ground for gardening Personal Factors Other Personal Factors That May Effect depression, hx bipolar Therapy/Recovery disortder PT-OP-C Subjective Start: 07/26/18 08:08 Freq: Status: Active Protocol: Document 09/17/18 11:45 MEGHNA (Rec: 09/17/18 15:05 LJ [id number]) OP-PT Subjective Patient Comments Patient Comments Pt arrived a few minutes early and swam a couple laps backstroke. Reports having difficulty performing pericare after bm d/t stiffness. PT-OP-G Mobility & Gait Start: 07/26/18 08:08 Freq: Status: Active Protocol: Document 12/31/18 15:21 [facility] (Rec: 07/26/18 16:05 [facility] [id number]) OP Mobility Evaluation Bed Mobility Rolling indep Supine to and from Sit indep Transfers Sit to Stand indep Floor Transfers labored, requires use of UE's on chair or table OP Gait Assessment Gait Gait Assistance Required: Independent Assistive Devices Assistive Device None Gait Deviations General Gait Pattern Decreased Stride Length Decreased Feet Clearance Factors Limiting Gait Function Factors Limiting Gait Function Decreased Strength Limited Range of Motion Pain Stair Climbing Evaluation Evaluation Level of Assist On Stairs Independent Devices Stair Climbing Assistive Devices Left Railing Right Railing Technique/Endurance Stair Climbing Direction Ascend and Descend Stair Climbing Technique Step Over Step PT-OP-K Range of Motion Start: 07/26/18 08:08 Freq: Status: Active Protocol: Document 07/26/18 15:21 [facility] (Rec: 07/26/18 16:05 [facility] [id number]) Lumbar Spine Range of Motion Lumbar Spine Active ROM Limitations Soft Tissue Tightness Muscle Weakness Pain Comments moderately decreased all motions Shoulder Goniometric Range of Motion Shoulder Measured in Degrees fiorella Shoulder ROM WFL Yes Hip Goniometric Range of Motion Hip Measured in Degrees Right Testing Position Supine Flexion w/Knee Flexed 120 Straight Leg Raise 55 Extension 5 Internal Rotation 20 External Rotation 40 left Testing Position Supine Flexion w/Knee Flexed 115 Straight Leg Raise 45 Extension 5 Internal Rotation 10 External Rotation 35 Hip ROM Limitations Hip ROM Limitations Soft Tissue Tightness Muscle Weakness Pain Knee Goniometric Range of Motion Knee Measured in Degrees fiorella Knee ROM WFL Yes Patient Position Supine Ankle and Foot Goniometric Range of Motion Ankle and Foot Measured in Degrees fiorella Ankle/Foot ROM WFL No Dorsiflexion with Knee Flexed 5 Dorsiflexion with Knee Extended 0 Plantarflexion 50 Ankle and Foot ROM Limitations ROM Limitations Soft Tissue Tightness Muscle Weakness PT-OP-M Strength Start: 07/26/18 08:08 Freq: Status: Active Protocol: Document 07/26/18 15:21 [facility] (Rec: 07/26/18 16:05 [facility] [id number]) Trunk Strength Trunk Manual Muscle Testing Testing Position Supine Flexion 3- Fair- Extension 3- Fair- Core Stabilization poor ability to activate TrA and multifidi Hip Strength Hip Manual Muscle Testing fiorella Flexion (L2) 3+ Fair+ Extension (S1) 3+ Fair+ Abduction 4- Good- External Rotation 3+ Fair+ Internal Rotation 4- Good- Knee Strength Knee Manual Muscle Testing fiorella Flexion (S2) 4+ Good+ Extension (L3) 4+ Good+ Ankle/Foot Strength Ankle and Foot Manual Muscle Testing fiorella Dorsiflexion (L4) 4+ Good+ Plantarflexion (S1) 4+ Good+ PT-OP-Q Treatments Start: 07/26/18 08:08 Freq: Status: Active Protocol: Document 08/18/18 15:23 SAK (Rec: 08/18/18 16:04 SAK [id number]) Cardio Equipment Recumbent Stepper (Sci-Fit) Duration (Minutes) 10 Resistance 2 Seat Position 12 Gym Equipment Shuttle Recovery Bilateral Squats Resistance 125 Reps/Time 10x1, 20x1 Shuttle Balance chains red Details balance wide and narrow front/ back, side to side bal Reps/Duration 5 min chains yellow Details wide LUIS, narrow LUIS, EO, EC Reps/Duration 5 min Comments balance Therapeutic Exercises Supine Exercises HS stretch Reps/Minutes 2x Standing Exercises 4-way hip Equipment Used L1 TB Reps/Minutes 10x resisted walk Standing Exercise Name side, fwd/bck Equipment Used green band PT-OP-S Aquatic Treatment Start: 07/26/18 08:08 Freq: Status: Active Protocol: Document 09/17/18 11:45 LJ (Rec: 09/17/18 15:05 LJ [id number]) Aquatics Treatment Pool Entry/Exit Pool Entry/Exit Method Stairs Assistance Independent Water Walking Lunge Walk Water Level Waist Level Level of Assistance Verbal Cues Comments #4 wts [place] September Water Level Chest Level Comments VCs for strong LE extension and glute activation fwd,bck,side,september Water Level Chest Level Level of Assistance Standby Assistance Verbal Cues Comments emphasis on postural alignment and core stab Lower Extremity Exercises HS curls Body Position Standing Water Level Chest Level Reps/Duration 15 fiorella Comments Cues for post pelvic tilt HS curls and kick backs Body Position Standing Water Level Chest Level Reps/Duration 10 bilat Comments cues for no hyperextension hip flex/ext, ab/ad, circles Water Level Chest Level Equipment Resistance Fins Reps/Duration 15x Comments no UE support 50% Lower Extremity Stretches Gastroc, soleus Body Position Standing Water Level Chest Level Reps/Duration 4x ea Comments at wall HS, ITB Body Position Standing Water Level Chest Level Reps/Duration 2x ea 30 sec Comments contract/relax at wall Upper Extremity Exercises UE pull downs Details front Water Level Chest Level Equipment UE paddles Reps/Duration 2 x 10 shoulder flex/ext Water Level Chest Level Equipment UE paddles Reps/Duration 2 x 10 Comments DLS emphasis hor ab/ad Water Level Chest Level Equipment UE paddles Reps/Duration 2 x 10 Comments DLS emphasis Upper Extremity Stretches dragging paddles for chest stretch Water Level Chest Level Equipment UE paddles Reps/Duration 2 laps in shallow Spinal Exercises SKTC, DKTC Water Level Waist Level Reps/Duration 2x 30 Comments at wall Manual Techniques WATSU 15 min for cervical and thoracic ext. rot. and lat flexion PT-OP-T Assessment and Plan Start: 07/26/18 08:08 Freq: Status: Active Protocol: Document 09/17/18 11:45 MEGHNA (Rec: 09/17/18 15:05 MEGHNA [id number]) Physical Therapy Assessment Goals Four Impairment strength Construction Assistant Goal (LTG) Increase strength bilateral LE 's to at least 4+/5 throughout Three Impairment Functional activities Short Term Goal (STG) Patient will improve his ROM and strength sufficient to allow him to don and doff his shoes and socks with ease STG Duration 6 wks Construction Assistant Goal (LTG) Patient will be able to tolerate resumption of gardening activities including getting down to the ground and back up without difficulty . LTG Duration 3 months Two Impairment Activity tolerance Group Home Goal (LTG) Patient will be able to resume prior activities including gardening and walking 15-20 min at a time without difficulty LTG Duration 3 months One Impairment pain Short Term Goal (STG) Decrease pain to no greater than 4/10 STG Duration 6 wks Group Home Goal (LTG) Decrease pain to no greater than 2/10 LTG Duration 3 months Assessment Summary Assessment Pt improving with posture and core stability in exercises requiring fewer cues. Able to increase HS length with contract/relax stretch. Improved flexibility post Watsu treatment Physical Therapy Plan Next Visit Focus/Plan Next Note Type Treatment Note Next Visit Plan Continue aquatic exercises to include LE strengthening and flexibility. Continue Watsu for spinal mobility.
--- NOTE | 2018-09-30 08:50 | PT.OTN ---
Current Diagnoses Pain in unspecified hip (09/27/18) Physical Therapy Treatment Note PT-OP-A Visit Information Start: 07/26/18 08:08 Freq: Status: Active Protocol: Document 09/29/18 10:15 [facility] (Rec: 09/30/18 08:50 [facility] [id number]) Out-Patient Physical Therapy Visit Information Visit Information Visit Type Progress Note Visit Start Time 11:45 Visit Stop Time 12:30 Total Visit Minutes 45 Visit Number 12 Number of AIR TECHNICIAN Visits 4 PT-OP-B Current Condition Start: 07/26/18 08:08 Freq: Status: Active Protocol: Document 07/26/18 15:21 SAK (Rec: 07/26/18 16:05 [facility] [id number]) Current Condition History of Current Condition Onset Date 1 year Current Complaints pain bilateral hips, LBP, left buttock and thigh History of Current Condition Patient reports gradual increase in pain, gaining weight, decrease in activity tolerance. States it has been a difficult year with multiple deaths of friends and family members and he has found it hard to be motivated to put his health as a priority. Has history of bipolar disorder, states medications were not helpful. History of quadrupal bypass surgery. Treatment Goals Patient/Caregiver Goals Decrease his pain, improve his activity tolerance, return to more active lifestyle. Prior Functional Status Baseline Function- ADL's Independent Baseline Function- Mobility Independent Baseline Function- Gait Independent, no pain Baseline Function- Recreation/Hobbies gardening, walking without difficulty Current Functional Impairments (Reported) Functional Limitations- ADL's painful, difficulty donning/ doffing shoes and socks Functional Limitations- Mobility/Gait painful and limited to household and short community distance Functional Limitations- Recreation/ painful, difficult to get up Hobbies off ground for gardening Personal Factors Other Personal Factors That May Effect depression, hx bipolar Therapy/Recovery disortder PT-OP-C Subjective Start: 07/26/18 08:08 Freq: Status: Active Protocol: Document 09/29/18 10:15 [facility] (Rec: 09/30/18 08:50 [facility] [id number]) OP-PT Subjective Patient Comments Patient Comments No new c/o, feels aquatic therapy helpful. PT-OP-G Mobility & Gait Start: 07/26/18 08:08 Freq: Status: Active Protocol: Document 07/26/18 15:21 SAK (Rec: 07/26/18 16:05 [facility] [id number]) OP Mobility Evaluation Bed Mobility Rolling indep Supine to and from Sit indep Transfers Sit to Stand indep Floor Transfers labored, requires use of UE's on chair or table OP Gait Assessment Gait Gait Assistance Required: Independent Assistive Devices Assistive Device None Gait Deviations General Gait Pattern Decreased Stride Length Decreased Feet Clearance Factors Limiting Gait Function Factors Limiting Gait Function Decreased Strength Limited Range of Motion Pain Stair Climbing Evaluation Evaluation Level of Assist On Stairs Independent Devices Stair Climbing Assistive Devices Left Railing Right Railing Technique/Endurance Stair Climbing Direction Ascend and Descend Stair Climbing Technique Step Over Step PT-OP-K Range of Motion Start: 07/26/18 08:08 Freq: Status: Active Protocol: Document 07/26/18 15:21 [facility] (Rec: 07/26/18 16:05 [facility] [id number]) Lumbar Spine Range of Motion Lumbar Spine Active ROM Limitations Soft Tissue Tightness Muscle Weakness Pain Comments moderately decreased all motions Shoulder Goniometric Range of Motion Shoulder Measured in Degrees fiorella Shoulder ROM WFL Yes Hip Goniometric Range of Motion Hip Measured in Degrees Right Testing Position Supine Flexion w/Knee Flexed 120 Straight Leg Raise 55 Extension 5 Internal Rotation 20 External Rotation 40 left Testing Position Supine Flexion w/Knee Flexed 115 Straight Leg Raise 45 Extension 5 Internal Rotation 10 External Rotation 35 Hip ROM Limitations Hip ROM Limitations Soft Tissue Tightness Muscle Weakness Pain Knee Goniometric Range of Motion Knee Measured in Degrees fiorella Knee ROM WFL Yes Patient Position Supine Ankle and Foot Goniometric Range of Motion Ankle and Foot Measured in Degrees fiorella Ankle/Foot ROM WFL No Dorsiflexion with Knee Flexed 5 Dorsiflexion with Knee Extended 0 Plantarflexion 50 Ankle and Foot ROM Limitations ROM Limitations Soft Tissue Tightness Muscle Weakness PT-OP-M Strength Start: 07/26/18 08:08 Freq: Status: Active Protocol: Document 07/26/18 15:21 [facility] (Rec: 07/26/18 16:05 [facility] [id number]) Trunk Strength Trunk Manual Muscle Testing Testing Position Supine Flexion 3- Fair- Extension 3- Fair- Core Stabilization poor ability to activate TrA and multifidi Hip Strength Hip Manual Muscle Testing fiorella Flexion (L2) 3+ Fair+ Extension (S1) 3+ Fair+ Abduction 4- Good- External Rotation 3+ Fair+ Internal Rotation 4- Good- Knee Strength Knee Manual Muscle Testing fiorella Flexion (S2) 4+ Good+ Extension (L3) 4+ Good+ Ankle/Foot Strength Ankle and Foot Manual Muscle Testing fiorella Dorsiflexion (L4) 4+ Good+ Plantarflexion (S1) 4+ Good+ PT-OP-Q Treatments Start: 07/26/18 08:08 Freq: Status: Active Protocol: Document 08/18/18 15:23 [facility] (Rec: 08/18/18 16:04 SAK [id number]) Cardio Equipment Recumbent Stepper (Sci-Fit) Duration (Minutes) 10 Resistance 2 Seat Position 12 Gym Equipment Shuttle Recovery Bilateral Squats Resistance 125 Reps/Time 10x1, 20x1 Shuttle Balance chains red Details balance wide and narrow front/ back, side to side bal Reps/Duration 5 min chains yellow Details wide LUIS, narrow LUIS, EO, EC Reps/Duration 5 min Comments balance Therapeutic Exercises Supine Exercises HS stretch Reps/Minutes 2x Standing Exercises 4-way hip Equipment Used L1 TB Reps/Minutes 10x resisted walk Standing Exercise Name side, fwd/bck Equipment Used green band PT-OP-S Aquatic Treatment Start: 07/26/18 08:08 Freq: Status: Active Protocol: Document 09/29/18 10:15 [facility] (Rec: 09/30/18 08:50 [facility] [id number]) Aquatics Treatment Pool Entry/Exit Pool Entry/Exit Method Stairs Assistance Independent Water Walking Lunge Walk Water Level Waist Level Level of Assistance Verbal Cues Comments #4 wts [place] March Water Level Chest Level Comments VCs for strong LE extension and glute activation fwd,bck,side,september Water Level Chest Level Level of Assistance Standby Assistance Verbal Cues Comments emphasis on postural alignment and core stab Lower Extremity Stretches HS, ITB Body Position Standing Water Level Chest Level Equipment Large Noodle Upper Extremity Exercises shoulder flex/ext Water Level Chest Level Equipment UE paddles Reps/Duration 2 x 10 Comments DLS emphasis hor ab/ad Water Level Chest Level Equipment UE paddles Reps/Duration 2 x 10 Comments DLS emphasis Spinal Exercises SKTC, DKTC Water Level Waist Level Reps/Duration 2x 30 Comments at wall Marshall Activities Marshall Activities Cross [place] Running Other Activities 5x 30:30 intervals running and cc ski pendulum x10 Corner SLR x10 Equipment 2XL belts Comments emphasis on postural alignment and core stab Manual Techniques WATSU 15 min for cervical and thoracic ext. rot. and lat flexion PT-OP-T Assessment and Plan Start: 07/26/18 08:08 Freq: Status: Active Protocol: Document 09/29/18 10:15 [facility] (Rec: 09/30/18 08:50 [facility] [id number]) Physical Therapy Assessment Goals Four Impairment strength Wardrobe Attendant Goal (LTG) Increase strength bilateral LE 's to at least 4+/5 throughout 09/29/18: good progress Three Impairment Functional activities Short Term Goal (STG) Patient will improve his ROM and strength sufficient to allow him to don and doff his shoes and socks with ease 09/29/18: good progress STG Duration 6 wks [facility] Goal (LTG) Patient will be able to tolerate resumption of gardening activities including getting down to the ground and back up without difficulty . LTG Duration 3 months Two Impairment Activity tolerance Wardrobe Attendant Goal (LTG) Patient will be able to resume prior activities including gardening and walking 15-20 min at a time without difficulty 10/09/18 good progress LTG Duration 3 months One Impairment pain Short Term Goal (STG) Decrease pain to no greater than 4/10 09/29/18: some goal progress STG Duration 6 wks Wardrobe Attendant Goal (LTG) Decrease pain to no greater than 2/10 LTG Duration 3 months Assessment Summary Assessment Improving strength and flexibility, remains highly motivated. Physical Therapy Plan Frequency and Duration Frequency of Treatment 2x/Week Duration of Treatment 3 months Plan of Care Start Date 07/26/18 Plan of Care End Date 10/24/18 Therapeutic Interventions Therapeutic Interventions Aquatic Therapy Home Exercise Program Patient/Caregiver Education Self-Care/Home Management Next Visit Focus/Plan Next Note Type Treatment Note Next Visit Plan Continue aquatic exercises to include LE strengthening and flexibility. Continue Watsu for spinal mobility.
--- NOTE | 2018-10-04 15:56 | PT.OTN ---
Current Diagnoses Pain in unspecified hip (10/04/18) Physical Therapy Treatment Note PT-OP-A Visit Information Start: 07/26/18 08:08 Freq: Status: Active Protocol: Document 10/04/18 12:30 CLB (Rec: 10/04/18 15:56 CLB [id number]) Out-Patient Physical Therapy Visit Information Visit Information Visit Type Aquatic Treatment Note Visit Start Time 12:30 Visit Stop Time 13:15 Total Visit Minutes 45 Visit Number 13 Number of SUPERVISOR INSPECTION ROOM Visits 5 PT-OP-B Current Condition Start: 07/26/18 08:08 Freq: Status: Active Protocol: Document 07/26/18 15:21 SAK (Rec: 07/26/18 16:05 SAK [id number]) Current Condition History of Current Condition Onset Date 1 year Current Complaints pain bilateral hips, LBP, left buttock and thigh History of Current Condition Patient reports gradual increase in pain, gaining weight, decrease in activity tolerance. States it has been a difficult year with multiple deaths of friends and family members and he has found it hard to be motivated to put his health as a priority. Has history of bipolar disorder, states medications were not helpful. History of quadrupal bypass surgery. Treatment Goals Patient/Caregiver Goals Decrease his pain, improve his activity tolerance, return to more active lifestyle. Prior Functional Status Baseline Function- ADL's Independent Baseline Function- Mobility Independent Baseline Function- Gait Independent, no pain Baseline Function- Recreation/Hobbies gardening, walking without difficulty Current Functional Impairments (Reported) Functional Limitations- ADL's painful, difficulty donning/ doffing shoes and socks Functional Limitations- Mobility/Gait painful and limited to household and short community distance Functional Limitations- Recreation/ painful, difficult to get up Hobbies off ground for gardening Personal Factors Other Personal Factors That May Effect depression, hx bipolar Therapy/Recovery disortder PT-OP-C Subjective Start: 07/26/18 08:08 Freq: Status: Active Protocol: Document 10/04/18 12:30 CLB (Rec: 10/04/18 15:56 CLB [id number]) OP-PT Subjective Patient Comments Patient Comments No new c/o, feels aquatic therapy helpful. PT-OP-G Mobility & Gait Start: 07/26/18 08:08 Freq: Status: Active Protocol: Document 07/26/18 15:21 SAK (Rec: 07/26/18 16:05 [facility] [id number]) OP Mobility Evaluation Bed Mobility Rolling indep Supine to and from Sit indep Transfers Sit to Stand indep Floor Transfers labored, requires use of UE's on chair or table OP Gait Assessment Gait Gait Assistance Required: Independent Assistive Devices Assistive Device None Gait Deviations General Gait Pattern Decreased Stride Length Decreased Feet Clearance Factors Limiting Gait Function Factors Limiting Gait Function Decreased Strength Limited Range of Motion Pain Stair Climbing Evaluation Evaluation Level of Assist On Stairs Independent Devices Stair Climbing Assistive Devices Left Railing Right Railing Technique/Endurance Stair Climbing Direction Ascend and Descend Stair Climbing Technique Step Over Step PT-OP-K Range of Motion Start: 07/26/18 08:08 Freq: Status: Active Protocol: Document 07/26/18 15:21 [facility] (Rec: 07/26/18 16:05 [facility] [id number]) Lumbar Spine Range of Motion Lumbar Spine Active ROM Limitations Soft Tissue Tightness Muscle Weakness Pain Comments moderately decreased all motions Shoulder Goniometric Range of Motion Shoulder Measured in Degrees fiorella Shoulder ROM WFL Yes Hip Goniometric Range of Motion Hip Measured in Degrees Right Testing Position Supine Flexion w/Knee Flexed 120 Straight Leg Raise 55 Extension 5 Internal Rotation 20 External Rotation 40 left Testing Position Supine Flexion w/Knee Flexed 115 Straight Leg Raise 45 Extension 5 Internal Rotation 10 External Rotation 35 Hip ROM Limitations Hip ROM Limitations Soft Tissue Tightness Muscle Weakness Pain Knee Goniometric Range of Motion Knee Measured in Degrees fiorella Knee ROM WFL Yes Patient Position Supine Ankle and Foot Goniometric Range of Motion Ankle and Foot Measured in Degrees fiorella Ankle/Foot ROM WFL No Dorsiflexion with Knee Flexed 5 Dorsiflexion with Knee Extended 0 Plantarflexion 50 Ankle and Foot ROM Limitations ROM Limitations Soft Tissue Tightness Muscle Weakness PT-OP-M Strength Start: 07/26/18 08:08 Freq: Status: Active Protocol: Document 07/26/18 15:21 [facility] (Rec: 07/26/18 16:05 [facility] [id number]) Trunk Strength Trunk Manual Muscle Testing Testing Position Supine Flexion 3- Fair- Extension 3- Fair- Core Stabilization poor ability to activate TrA and multifidi Hip Strength Hip Manual Muscle Testing fiorella Flexion (L2) 3+ Fair+ Extension (S1) 3+ Fair+ Abduction 4- Good- External Rotation 3+ Fair+ Internal Rotation 4- Good- Knee Strength Knee Manual Muscle Testing fiorella Flexion (S2) 4+ Good+ Extension (L3) 4+ Good+ Ankle/Foot Strength Ankle and Foot Manual Muscle Testing fiorella Dorsiflexion (L4) 4+ Good+ Plantarflexion (S1) 4+ Good+ PT-OP-Q Treatments Start: 07/26/18 08:08 Freq: Status: Active Protocol: Document 08/18/18 15:23 SAK (Rec: 08/18/18 16:04 SAK [id number]) Cardio Equipment Recumbent Stepper (Sci-Fit) Duration (Minutes) 10 Resistance 2 Seat Position 12 Gym Equipment Shuttle Recovery Bilateral Squats Resistance 125 Reps/Time 10x1, 20x1 Shuttle Balance chains red Details balance wide and narrow front/ back, side to side bal Reps/Duration 5 min chains yellow Details wide LUIS, narrow LUIS, EO, EC Reps/Duration 5 min Comments balance Therapeutic Exercises Supine Exercises HS stretch Reps/Minutes 2x Standing Exercises 4-way hip Equipment Used L1 TB Reps/Minutes 10x resisted walk Standing Exercise Name side, fwd/bck Equipment Used green band PT-OP-S Aquatic Treatment Start: 07/26/18 08:08 Freq: Status: Active Protocol: Document 10/04/18 12:30 CLB (Rec: 10/04/18 15:56 CLB [id number]) Aquatics Treatment Pool Entry/Exit Pool Entry/Exit Method Stairs Assistance Independent Water Walking Lunge Walk Water Level Waist Level Level of Assistance Verbal Cues Comments #4 wts [place] March Water Level Chest Level Comments VCs for strong LE extension and glute activation fwd,bck,side,september Water Level Chest Level Level of Assistance Standby Assistance Verbal Cues Comments emphasis on postural alignment and core stab Lower Extremity Exercises HS curls Body Position Standing Water Level Chest Level Reps/Duration 15 fiorella Comments Cues for post pelvic tilt HS curls and kick backs Body Position Standing Water Level Chest Level Reps/Duration 10 bilat Comments cues for no hyperextension hip flex/ext, ab/ad, circles Water Level Chest Level Equipment Resistance Fins Reps/Duration 15x Comments no UE support 50% Lower Extremity Stretches HS, ITB Body Position Standing Water Level Chest Level Equipment Large Noodle Upper Extremity Exercises UE pull downs Details front Water Level Chest Level Equipment UE paddles Reps/Duration 2 x 10 shoulder flex/ext Water Level Chest Level Equipment UE paddles Reps/Duration 2 x 10 Comments DLS emphasis hor ab/ad Water Level Chest Level Equipment UE paddles Reps/Duration 2 x 10 Comments DLS emphasis Spinal Exercises SKTC, DKTC Water Level Waist Level Reps/Duration 2x 30 Comments at wall [place] Activities [place] Activities Cross [place] Running Other Activities 5x 30:30 intervals running and cc ski pendulum x10 Corner SLR x10 Equipment 2XL belts Comments emphasis on postural alignment and core stab PT-OP-T Assessment and Plan Start: 07/26/18 08:08 Freq: Status: Active Protocol: Document 10/04/18 12:30 CLB (Rec: 10/04/18 15:56 CLB [id number]) Physical Therapy Assessment Goals Four Impairment strength Nursing Home Goal (LTG) Increase strength bilateral LE 's to at least 4+/5 throughout 09/29/18: good progress Three Impairment Functional activities Short Term Goal (STG) Patient will improve his ROM and strength sufficient to allow him to don and doff his shoes and socks with ease 09/29/18: good progress STG Duration 6 wks Laborer Demolition Goal (LTG) Patient will be able to tolerate resumption of gardening activities including getting down to the ground and back up without difficulty . LTG Duration 3 months Two Impairment Activity tolerance Nursing Home Goal (LTG) Patient will be able to resume prior activities including gardening and walking 15-20 min at a time without difficulty 10/09/18 good progress LTG Duration 3 months One Impairment pain Short Term Goal (STG) Decrease pain to no greater than 4/10 09/29/18: some goal progress STG Duration 6 wks [employer]orer [employer]ol[employer] Goal (LTG) Decrease pain to no greater than 2/10 LTG Duration 3 months Assessment Summary Assessment Pt required cues for posture during intervals to reduce neck pain and cues for core stabilization during all activities. Physical Therapy Plan Frequency and Duration Frequency of Treatment 2x/Week Duration of Treatment 3 months Plan of Care Start Date 07/26/18 Plan of Care End Date 10/24/18 Next Visit Focus/Plan Next Visit Plan Continue aquatic exercises to include LE strengthening and flexibility. Continue Watsu for spinal mobility.
--- NOTE | 2018-10-06 15:32 | PT.OTN ---
Current Diagnoses Pain in unspecified hip (10/06/18) Physical Therapy Treatment Note PT-OP-A Visit Information Start: 07/26/18 08:08 Freq: Status: Active Protocol: Document 10/06/18 11:45 MEGHNA (Rec: 10/06/18 15:32 LJ [id number]) Out-Patient Physical Therapy Visit Information Visit Information Visit Type Aquatic Treatment Note Visit Start Time 11:45 Visit Stop Time 12:30 Total Visit Minutes 45 Visit Number 14 Number of MULTIMEDIA TEACHER Visits 2 PT-OP-B Current Condition Start: 07/26/18 08:08 Freq: Status: Active Protocol: Document 07/26/18 15:21 SAK (Rec: 07/26/18 16:05 SAK [id number]) Current Condition History of Current Condition Onset Date 1 year Current Complaints pain bilateral hips, LBP, left buttock and thigh History of Current Condition Patient reports gradual increase in pain, gaining weight, decrease in activity tolerance. States it has been a difficult year with multiple deaths of friends and family members and he has found it hard to be motivated to put his health as a priority. Has history of bipolar disorder, states medications were not helpful. History of quadrupal bypass surgery. Treatment Goals Patient/Caregiver Goals Decrease his pain, improve his activity tolerance, return to more active lifestyle. Prior Functional Status Baseline Function- ADL's Independent Baseline Function- Mobility Independent Baseline Function- Gait Independent, no pain Baseline Function- Recreation/Hobbies gardening, walking without difficulty Current Functional Impairments (Reported) Functional Limitations- ADL's painful, difficulty donning/ doffing shoes and socks Functional Limitations- Mobility/Gait painful and limited to household and short community distance Functional Limitations- Recreation/ painful, difficult to get up Hobbies off ground for gardening Personal Factors Other Personal Factors That May Effect depression, hx bipolar Therapy/Recovery disortder PT-OP-C Subjective Start: 07/26/18 08:08 Freq: Status: Active Protocol: Document 10/06/18 11:45 MEGHNA (Rec: 10/06/18 15:32 LJ [id number]) OP-PT Subjective Patient Comments Patient Comments No new c/o, feels aquatic therapy helpful. PT-OP-G Mobility & Gait Start: 07/26/18 08:08 Freq: Status: Active Protocol: Document 07/26/18 15:21 SAK (Rec: 07/26/18 16:05 SAK [id number]) OP Mobility Evaluation Bed Mobility Rolling indep Supine to and from Sit indep Transfers Sit to Stand indep Floor Transfers labored, requires use of UE's on chair or table OP Gait Assessment Gait Gait Assistance Required: Independent Assistive Devices Assistive Device None Gait Deviations General Gait Pattern Decreased Stride Length Decreased Feet Clearance Factors Limiting Gait Function Factors Limiting Gait Function Decreased Strength Limited Range of Motion Pain Stair Climbing Evaluation Evaluation Level of Assist On Stairs Independent Devices Stair Climbing Assistive Devices Left Railing Right Railing Technique/Endurance Stair Climbing Direction Ascend and Descend Stair Climbing Technique Step Over Step PT-OP-K Range of Motion Start: 07/26/18 08:08 Freq: Status: Active Protocol: Document 07/26/18 15:21 [facility] (Rec: 07/26/18 16:05 [facility] [id number]) Lumbar Spine Range of Motion Lumbar Spine Active ROM Limitations Soft Tissue Tightness Muscle Weakness Pain Comments moderately decreased all motions Shoulder Goniometric Range of Motion Shoulder Measured in Degrees fiorella Shoulder ROM WFL Yes Hip Goniometric Range of Motion Hip Measured in Degrees Right Testing Position Supine Flexion w/Knee Flexed 120 Straight Leg Raise 55 Extension 5 Internal Rotation 20 External Rotation 40 left Testing Position Supine Flexion w/Knee Flexed 115 Straight Leg Raise 45 Extension 5 Internal Rotation 10 External Rotation 35 Hip ROM Limitations Hip ROM Limitations Soft Tissue Tightness Muscle Weakness Pain Knee Goniometric Range of Motion Knee Measured in Degrees fiorella Knee ROM WFL Yes Patient Position Supine Ankle and Foot Goniometric Range of Motion Ankle and Foot Measured in Degrees fiorella Ankle/Foot ROM WFL No Dorsiflexion with Knee Flexed 5 Dorsiflexion with Knee Extended 0 Plantarflexion 50 Ankle and Foot ROM Limitations ROM Limitations Soft Tissue Tightness Muscle Weakness PT-OP-M Strength Start: 07/26/18 08:08 Freq: Status: Active Protocol: Document 07/26/18 15:21 [facility] (Rec: 07/26/18 16:05 [facility] [id number]) Trunk Strength Trunk Manual Muscle Testing Testing Position Supine Flexion 3- Fair- Extension 3- Fair- Core Stabilization poor ability to activate TrA and multifidi Hip Strength Hip Manual Muscle Testing fiorella Flexion (L2) 3+ Fair+ Extension (S1) 3+ Fair+ Abduction 4- Good- External Rotation 3+ Fair+ Internal Rotation 4- Good- Knee Strength Knee Manual Muscle Testing fiorella Flexion (S2) 4+ Good+ Extension (L3) 4+ Good+ Ankle/Foot Strength Ankle and Foot Manual Muscle Testing fiorella Dorsiflexion (L4) 4+ Good+ Plantarflexion (S1) 4+ Good+ PT-OP-Q Treatments Start: 07/26/18 08:08 Freq: Status: Active Protocol: Document 08/18/18 15:23 SAK (Rec: 08/18/18 16:04 SAK [id number]) Cardio Equipment Recumbent Stepper (Sci-Fit) Duration (Minutes) 10 Resistance 2 Seat Position 12 Gym Equipment Shuttle Recovery Bilateral Squats Resistance 125 Reps/Time 10x1, 20x1 Shuttle Balance chains red Details balance wide and narrow front/ back, side to side bal Reps/Duration 5 min chains yellow Details wide LUIS, narrow LUIS, EO, EC Reps/Duration 5 min Comments balance Therapeutic Exercises Supine Exercises HS stretch Reps/Minutes 2x Standing Exercises 4-way hip Equipment Used L1 TB Reps/Minutes 10x resisted walk Standing Exercise Name side, fwd/bck Equipment Used green band PT-OP-S Aquatic Treatment Start: 07/26/18 08:08 Freq: Status: Active Protocol: Document 10/06/18 11:45 LJ (Rec: 10/06/18 15:32 LJ [id number]) Aquatics Treatment Pool Entry/Exit Pool Entry/Exit Method Stairs Assistance Independent Water Walking Lunge Walk Water Level Waist Level Walking Equipment Ankle Floats [place] September Water Level Chest Level Walking Equipment Ankle Floats Comments VCs for strong LE extension and glute activation fwd,bck,side,september Water Level Chest Level Walking Equipment Ankle Floats Comments core activation Lower Extremity Exercises HS curls and kick backs Body Position Standing Water Level Chest Level Equipment Ankle Floats Reps/Duration 10 bilat Comments cues for no hyperextension hip flex/ext, ab/ad, circles Water Level Chest Level Equipment Ankle Floats Reps/Duration 15x Comments minimal UE support Lower Extremity Stretches Gastroc, soleus Body Position Standing Water Level Chest Level Equipment Ankle Floats Reps/Duration 4x ea Comments at wall quad stretch Body Position Standing Equipment Ankle Floats Spinal Exercises SKTC, DKTC Water Level Waist Level Reps/Duration 2x 30 Comments at wall [place] Activities [place] Activities Bicycle [place] Hip Abduction/Adduction Other Activities 5x 30:30 intervals running and cc ski pendulum x10 Corner SLR x10 bilat leg kickout front-back PT-OP-T Assessment and Plan Start: 07/26/18 08:08 Freq: Status: Active Protocol: Document 10/06/18 11:45 MEGHNA (Rec: 10/06/18 15:32 MEGHNA [id number]) Physical Therapy Assessment Goals Four Impairment strength Mri Special Procedures Technologist Goal (LTG) Increase strength bilateral LE 's to at least 4+/5 throughout 09/29/18: good progress Three Impairment Functional activities Short Term Goal (STG) Patient will improve his ROM and strength sufficient to allow him to don and doff his shoes and socks with ease 09/29/18: good progress STG Duration 6 wks Mri Special Procedures Technologist Goal (LTG) Patient will be able to tolerate resumption of gardening activities including getting down to the ground and back up without difficulty . LTG Duration 3 months Two Impairment Activity tolerance Mri Special Procedures Technologist Goal (LTG) Patient will be able to resume prior activities including gardening and walking 15-20 min at a time without difficulty 10/09/18 good progress LTG Duration 3 months One Impairment pain Short Term Goal (STG) Decrease pain to no greater than 4/10 09/29/18: some goal progress STG Duration 6 wks Mri Special Procedures Technologist Goal (LTG) Decrease pain to no greater than 2/10 LTG Duration 3 months Assessment Summary Assessment Reviewed posture and core muscle stabilization maneuver of drawing in TA and setting shoulder blades. Pt motivated to resume swimming on his own w/snorkel and mask. Pt posture improved and endurance is improving. Pt prefers no belt in deep water d/t feeling as if belt restricts breathing. Physical Therapy Plan Frequency and Duration Frequency of Treatment 2x/Week Duration of Treatment 3 months Plan of Care Start Date 07/26/18 Plan of Care End Date 10/24/18 Therapeutic Interventions Therapeutic Interventions Aquatic Therapy Home Exercise Program Patient/Caregiver Education Self-Care/Home Management Next Visit Focus/Plan Next Visit Plan Continue aquatic exercises to improve ROM and flexibility. Continue Watsu for spinal mobility.
--- NOTE | 2018-10-13 10:26 | PT.OPDS ---
Current Diagnoses Pain in unspecified hip (10/06/18) Provider Visit Care Team Role Provider Type Other Providers Specialty: Address: Phone: Fax: Email: Syeda Durand MD Attending Provider Non-Staff Specialty: Internal Medicine Address: [place], [address] Fax: Email: Visit Number Visit Number 14 Discharge Summary PT-OP-B Current Condition Start: 07/26/18 08:08 Freq: Status: Active Protocol: Document 07/26/18 15:21 SAK (Rec: 07/26/18 16:05 SAK [id number]) Current Condition History of Current Condition Onset Date 1 year Current Complaints pain bilateral hips, LBP, left buttock and thigh History of Current Condition Patient reports gradual increase in pain, gaining weight, decrease in activity tolerance. States it has been a difficult year with multiple deaths of friends and family members and he has found it hard to be motivated to put his health as a priority. Has history of bipolar disorder, states medications were not helpful. History of quadrupal bypass surgery. Treatment Goals Patient/Caregiver Goals Decrease his pain, improve his activity tolerance, return to more active lifestyle. Prior Functional Status Baseline Function- ADL's Independent Baseline Function- Mobility Independent Baseline Function- Gait Independent, no pain Baseline Function- Recreation/Hobbies gardening, walking without difficulty Current Functional Impairments (Reported) Functional Limitations- ADL's painful, difficulty donning/ doffing shoes and socks Functional Limitations- Mobility/Gait painful and limited to household and short community distance Functional Limitations- Recreation/ painful, difficult to get up Hobbies off ground for gardening Personal Factors Other Personal Factors That May Effect depression, hx bipolar Therapy/Recovery disortder PT-OP-C Subjective Start: 07/26/18 08:08 Freq: Status: Active Protocol: Document 10/06/18 11:45 LJ (Rec: 10/06/18 15:32 LJ [id number]) OP-PT Subjective Patient Comments Patient Comments No new c/o, feels aquatic therapy helpful. PT-OP-G Mobility & Gait Start: 07/26/18 08:08 Freq: Status: Active Protocol: Document 07/26/18 15:21 SAK (Rec: 07/26/18 16:05 SAK [id number]) OP Mobility Evaluation Bed Mobility Rolling indep Supine to and from Sit indep Transfers Sit to Stand indep Floor Transfers labored, requires use of UE's on chair or table OP Gait Assessment Gait Gait Assistance Required: Independent Assistive Devices Assistive Device None Gait Deviations General Gait Pattern Decreased Stride Length Decreased Feet Clearance Factors Limiting Gait Function Factors Limiting Gait Function Decreased Strength Limited Range of Motion Pain Stair Climbing Evaluation Evaluation Level of Assist On Stairs Independent Devices Stair Climbing Assistive Devices Left Railing Right Railing Technique/Endurance Stair Climbing Direction Ascend and Descend Stair Climbing Technique Step Over Step PT-OP-K Range of Motion Start: 07/26/18 08:08 Freq: Status: Active Protocol: Document 07/26/18 15:21 [facility] (Rec: 07/26/18 16:05 [facility] [id number]) Lumbar Spine Range of Motion Lumbar Spine Active ROM Limitations Soft Tissue Tightness Muscle Weakness Pain Comments moderately decreased all motions Shoulder Goniometric Range of Motion Shoulder Measured in Degrees fiorella Shoulder ROM WFL Yes Hip Goniometric Range of Motion Hip Measured in Degrees Right Testing Position Supine Flexion w/Knee Flexed 120 Straight Leg Raise 55 Extension 5 Internal Rotation 20 External Rotation 40 left Testing Position Supine Flexion w/Knee Flexed 115 Straight Leg Raise 45 Extension 5 Internal Rotation 10 External Rotation 35 Hip ROM Limitations Hip ROM Limitations Soft Tissue Tightness Muscle Weakness Pain Knee Goniometric Range of Motion Knee Measured in Degrees fiorella Knee ROM WFL Yes Patient Position Supine Ankle and Foot Goniometric Range of Motion Ankle and Foot Measured in Degrees fiorella Ankle/Foot ROM WFL No Dorsiflexion with Knee Flexed 5 Dorsiflexion with Knee Extended 0 Plantarflexion 50 Ankle and Foot ROM Limitations ROM Limitations Soft Tissue Tightness Muscle Weakness PT-OP-M Strength Start: 07/26/18 08:08 Freq: Status: Active Protocol: Document 07/26/18 15:21 [facility] (Rec: 07/26/18 16:05 [facility] [id number]) Trunk Strength Trunk Manual Muscle Testing Testing Position Supine Flexion 3- Fair- Extension 3- Fair- Core Stabilization poor ability to activate TrA and multifidi Hip Strength Hip Manual Muscle Testing fiorella Flexion (L2) 3+ Fair+ Extension (S1) 3+ Fair+ Abduction 4- Good- External Rotation 3+ Fair+ Internal Rotation 4- Good- Knee Strength Knee Manual Muscle Testing fiorella Flexion (S2) 4+ Good+ Extension (L3) 4+ Good+ Ankle/Foot Strength Ankle and Foot Manual Muscle Testing fiorella Dorsiflexion (L4) 4+ Good+ Plantarflexion (S1) 4+ Good+ PT-OP-T Assessment and Plan Start: 07/26/18 08:08 Freq: Status: Active Protocol: Document 10/13/18 12:00 [facility] (Rec: 11/25/18 10:26 [facility] [id number]) Physical Therapy Plan Discharge Physical Therapy Discharge Reasons Change in Medical Status Discharge Comments having surgery for prostate cancer. Will discharge from PT at this time.
--- NOTE | 2018-12-10 14:13 | PT.OPDS ---
Current Diagnoses Pain in unspecified hip (10/06/18) Provider Visit Care Team Role Provider Type Other Providers Specialty: Address: Phone: Fax: Email: Syeda Durand MD Attending Provider Non-Staff Specialty: Internal Medicine Address: [place], [address] Fax: Email: Visit Number Visit Number 14 Discharge Summary PT-OP-B Current Condition Start: 07/26/18 08:08 Freq: Status: Active Protocol: Document 07/26/18 15:21 SAK (Rec: 07/26/18 16:05 SAK [id number]) Current Condition History of Current Condition Onset Date 1 year Current Complaints pain bilateral hips, LBP, left buttock and thigh History of Current Condition Patient reports gradual increase in pain, gaining weight, decrease in activity tolerance. States it has been a difficult year with multiple deaths of friends and family members and he has found it hard to be motivated to put his health as a priority. Has history of bipolar disorder, states medications were not helpful. History of quadrupal bypass surgery. Treatment Goals Patient/Caregiver Goals Decrease his pain, improve his activity tolerance, return to more active lifestyle. Prior Functional Status Baseline Function- ADL's Independent Baseline Function- Mobility Independent Baseline Function- Gait Independent, no pain Baseline Function- Recreation/Hobbies gardening, walking without difficulty Current Functional Impairments (Reported) Functional Limitations- ADL's painful, difficulty donning/ doffing shoes and socks Functional Limitations- Mobility/Gait painful and limited to household and short community distance Functional Limitations- Recreation/ painful, difficult to get up Hobbies off ground for gardening Personal Factors Other Personal Factors That May Effect depression, hx bipolar Therapy/Recovery disortder PT-OP-C Subjective Start: 07/26/18 08:08 Freq: Status: Active Protocol: Document 10/06/18 11:45 LJ (Rec: 10/06/18 15:32 LJ [id number]) OP-PT Subjective Patient Comments Patient Comments No new c/o, feels aquatic therapy helpful. PT-OP-G Mobility & Gait Start: 07/26/18 08:08 Freq: Status: Active Protocol: Document 07/26/18 15:21 SAK (Rec: 07/26/18 16:05 SAK [id number]) OP Mobility Evaluation Bed Mobility Rolling indep Supine to and from Sit indep Transfers Sit to Stand indep Floor Transfers labored, requires use of UE's on chair or table OP Gait Assessment Gait Gait Assistance Required: Independent Assistive Devices Assistive Device None Gait Deviations General Gait Pattern Decreased Stride Length Decreased Feet Clearance Factors Limiting Gait Function Factors Limiting Gait Function Decreased Strength Limited Range of Motion Pain Stair Climbing Evaluation Evaluation Level of Assist On Stairs Independent Devices Stair Climbing Assistive Devices Left Railing Right Railing Technique/Endurance Stair Climbing Direction Ascend and Descend Stair Climbing Technique Step Over Step PT-OP-K Range of Motion Start: 07/26/18 08:08 Freq: Status: Active Protocol: Document 07/26/18 15:21 [facility] (Rec: 07/26/18 16:05 [facility] [id number]) Lumbar Spine Range of Motion Lumbar Spine Active ROM Limitations Soft Tissue Tightness Muscle Weakness Pain Comments moderately decreased all motions Shoulder Goniometric Range of Motion Shoulder Measured in Degrees fiorella Shoulder ROM WFL Yes Hip Goniometric Range of Motion Hip Measured in Degrees Right Testing Position Supine Flexion w/Knee Flexed 120 Straight Leg Raise 55 Extension 5 Internal Rotation 20 External Rotation 40 left Testing Position Supine Flexion w/Knee Flexed 115 Straight Leg Raise 45 Extension 5 Internal Rotation 10 External Rotation 35 Hip ROM Limitations Hip ROM Limitations Soft Tissue Tightness Muscle Weakness Pain Knee Goniometric Range of Motion Knee Measured in Degrees fiorella Knee ROM WFL Yes Patient Position Supine Ankle and Foot Goniometric Range of Motion Ankle and Foot Measured in Degrees fiorella Ankle/Foot ROM WFL No Dorsiflexion with Knee Flexed 5 Dorsiflexion with Knee Extended 0 Plantarflexion 50 Ankle and Foot ROM Limitations ROM Limitations Soft Tissue Tightness Muscle Weakness PT-OP-M Strength Start: 07/26/18 08:08 Freq: Status: Active Protocol: Document 07/26/18 15:21 [facility] (Rec: 07/26/18 16:05 [facility] [id number]) Trunk Strength Trunk Manual Muscle Testing Testing Position Supine Flexion 3- Fair- Extension 3- Fair- Core Stabilization poor ability to activate TrA and multifidi Hip Strength Hip Manual Muscle Testing fiorella Flexion (L2) 3+ Fair+ Extension (S1) 3+ Fair+ Abduction 4- Good- External Rotation 3+ Fair+ Internal Rotation 4- Good- Knee Strength Knee Manual Muscle Testing fiorella Flexion (S2) 4+ Good+ Extension (L3) 4+ Good+ Ankle/Foot Strength Ankle and Foot Manual Muscle Testing fiorella Dorsiflexion (L4) 4+ Good+ Plantarflexion (S1) 4+ Good+ PT-OP-T Assessment and Plan Start: 07/26/18 08:08 Freq: Status: Active Protocol: Document 10/13/18 12:00 [facility] (Rec: 11/25/18 10:26 [facility] [id number]) Physical Therapy Plan Discharge Physical Therapy Discharge Reasons Change in Medical Status Discharge Comments having surgery for prostate cancer. Will discharge from PT at this time.
== END 2019-01-20 11:22 | disposition home or self-care (01) ==
LOC: PHYS 11:45
PROVIDERS: Visit Provider Internal Medicine
DX: M25.559 Pain in unspecified hip (principal)
CPT/HCPCS: 97110; 97113; 97162; 97535